=== PATIENT | female | born 1945 | race Caucasian/White ===

== ENCOUNTER → 2021-04-24 | Outpatient (CLI) | payer MEDICARE, OTHER ==
[2021-04-24 16:12] LABS: Appearance,Urine Clear (Clear); Bilirubin,Urine Negative (Negative); Blood,Urine Small (Negative); Color,Urine Light Yellow; Glucose,Urine (UA) Negative (Negative); HCT 36.5 % (34.0-46.0); Hypochromasia Slight; Ketones,Urine Negative (Negative); Leukocyte Esterase,Urine Trace (Negative); MCH 28.3 pg (25.0-35.0); MCHC 32.9 g/dL (31.0-37.0); MCV 86.1 fL (80.0-100.0); Mean Platelet Volume 6.9; Mucus,Urine Rare /hpf; Nitrite,Urine Negative (Negative); PH, Urine 5.5 (5.0-8.0); Platelet Count 391 k/uL (150-450); Protein,Urine Negative (Negative); RBC 4.24 m/uL (3.80-5.40); RBC,Urine 2 /hpf (0-5); RDW 14.6 % (11.5-15.5); Specific Gravity,Urine 1.009 (1.001-1.035); Urobilinogen,Urine <2.0 mg/dL (<2.0); WBC 6.4 k/uL (3.8-10.6); WBC,Urine 1 /hpf (0-5)
[2021-04-24 16:14] LABS: Albumin 3.8 g/dL (3.5-5.0); Calcium 9.8 mg/dL (8.4-10.2); Potassium 3.3 mmol/L (3.5-5.1); Total Bilirubin 0.4 mg/dL (0.2-1.3); Total Protein 7.5 g/dL (6.3-8.2)
[2021-04-24 16:17] LABS: Partial Thromboplastin Time 23.3 sec (22.0-30.0); Prothrombin Time 10.5 sec (9.0-12.0)
== END | disposition home or self-care (01) ==
LOC: LABPAT 15:02
PROVIDERS: ATTEND Orthopaedic Surgery Sports Medicine
DX: Z01.818 Encounter for other preprocedural examination (principal); M17.12 Unilateral primary osteoarthritis, left knee; R94.31 Abnormal electrocardiogram [ECG] [EKG]
CPT/HCPCS: 36415; 80053; 81001; 85027; 85610; 85730; 87070; 93005

== ENCOUNTER 2021-05-04 05:37 | Day surgery (SDC) | payer MEDICARE, OTHER ==
[~2021-05-04 05:37] MED LIST: ACETAMINOPHEN TAB 500 MG TAB PO PRN; GABAPENTIN 300 MG CAP PO PRN; MELOXICAM 7.5 MG TAB PO PRN; ONDANSETRON 4 MG/2 ML VIAL IVP PRN; ROPIVACAINE/EPI/CLONIDINE/KET 50 ML SYRINGE MISCELLANE PRN
[2021-05-04] MEDS ORDERED: ONDANSETRON 4 MG/2 ML VIAL IVP ONE (05:56)
[2021-05-04] MEDS ORDERED: HYDROmorphone 0.5 MG/0.5 ML SYRINGE IVP PRN ×3 (05:56→09:59)
[2021-05-04] MEDS ORDERED: DEXAMETHASONE SOD PHOSPHATE 4 MG/ML 1 ML VIAL IV ONE (05:56)
[2021-05-04] MEDS ORDERED: MIDAZOLAM 2 MG/2 ML VIAL IV PRN (05:56)
[2021-05-04] MEDS: LACTATED RINGERS 1,000 ML IV SCH ×3 (06:28→21:19)
[2021-05-04] MEDS ORDERED: LIDOCAINE 1% (10MG/ML) FOR IV START INTRADERMA ONE (06:28)
[2021-05-04] MEDS ORDERED: ROPIVACAINE 5 MG/ML 30 ML VIAL ONE (07:41)
[2021-05-04] MEDS ORDERED: TRANEXAMIC ACID 1,000 MG/10 ML VIAL ONE (07:41)
[2021-05-04] MEDS ORDERED: SODIUM CHLORIDE 0.9% 100 ML BAG ONE (07:41)
[2021-05-04] MEDS ORDERED: PROPOFOL 10 MG/ML 20 ML VIAL IV ONE (07:41)
[2021-05-04] MEDS ORDERED: fentaNYL (PF) 50 MCG/ML 2 ML AMP ONE (07:41)
[2021-05-04] MEDS ORDERED: TRANEXAMIC ACID 1,000 MG in SODIUM CHLORIDE 0.9% 100 ML IVPB ONE ×4 (07:45)
--- NOTE | 2021-05-04 07:51 | P.ANPRN ---
Procedure Note - Anesthesia - Nerve Block Performed Left Adductor Canal Time Out Performed: Yes (06:36) Date of Procedure: 05/04/21 Procedure Start Time: :36 Procedure Stop Time: 06:48 Location of Patient: PreOp Indication: Acute Post-Operative Pain, Requested by Surgeon (Dr Arriola) Sedation Type: Sedate with meaningful contact maintained Preparation: Sterile Prep, Sterile Dressing Position: Supine Catheter: Indwelling Needle Types: Pajunk Needle Gauge: 21 Ultrasound used to visualize needle placement: Yes Ultrasound used to observe medication spread: Yes Injectate: 0.5% Ropivacaine (see comment for volume) (15cc) Blood Aspirated: No Pain Paresthesia on Injection Noted: No Resistance on Injection: Normal Image Stored and Saved: Yes Events: Uneventful and Well Tolerated
--- NOTE | 2021-05-04 07:53 | P.ANPRN ---
Procedure Note - Anesthesia - Nerve Block Performed Left iPack Time Out Performed: Yes Date of Procedure: 05/04/21 Procedure Start Time: 06:49 Procedure Stop Time: 06:59 Location of Patient: PreOp Indication: Acute Post-Operative Pain, Requested by Surgeon (Dr Arriola) Sedation Type: Sedate with meaningful contact maintained Preparation: Sterile Prep Position: Supine Catheter: None Needle Types: Pajunk Needle Gauge: 21 Ultrasound used to visualize needle placement: Yes Ultrasound used to observe medication spread: Yes Injectate: 0.5% Ropivacaine (see comment for volume) (15cc) Blood Aspirated: No Pain Paresthesia on Injection Noted: No Resistance on Injection: Normal Image Stored and Saved: Yes Events: Uneventful and Well Tolerated
[2021-05-04] MEDS ORDERED: ceFAZolin 3,000 MG in SODIUM CHLORIDE 0.9% IRRIGATIO 3,000 ML IRRIGATION ONE (08:18)
[2021-05-04] MEDS ORDERED: ROPIVACAINE 0.2%-NS ON-Q PUMP 2 MG/ML EACH MISCELLANE ONE (09:42)
[2021-05-04] MEDS ORDERED: ONDANSETRON 4 MG/2 ML VIAL IVP PRN (09:59)
[2021-05-04] MEDS ORDERED: ACETAMINOPHEN TAB 325 MG TAB PO PRN (09:59)
[2021-05-04] MEDS ORDERED: HYDROcodone/APAP 10-325MG 1 EACH TAB PO PRN (09:59)
[2021-05-04] MEDS ORDERED: traMADol 50 MG TAB PO PRN (09:59)
[2021-05-04] MEDS ORDERED: MAGNESIUM HYDROXIDE 2,400 MG/10 ML CUP PO PRN (09:59)
[2021-05-04] MEDS ORDERED: HYDROcodone/APAP 5-325MG 1 EACH TAB PO PRN (09:59)
[2021-05-04] MEDS ORDERED: HYDROmorphone 0.2 MG/1 ML SYRINGE IVP PRN (09:59)
[2021-05-04] MEDS ORDERED: NALOXONE 0.4 MG/ML 1 ML VIAL IV PRN (09:59)
[2021-05-04] MEDS ORDERED: bisacodyL 10 MG SUPP RECTAL PRN (09:59)
[2021-05-04] MEDS ORDERED: NA PHOS,M-B/NA PHOS,DI-BA 133 ML ENEMA RECTAL PRN (09:59)
[2021-05-04] MEDS ORDERED: LACTATED RINGERS 1,000 ML IV ONE (11:03)
--- NOTE | 2021-05-04 11:59 | XR ---
EXAMINATION TYPE: XR knee limited LT DATE OF EXAM: 05/04/2021 COMPARISON: NONE HISTORY: Pain TECHNIQUE: Three views are submitted. FINDINGS: Joint spaces are preserved. Osseous structures are intact. No acute fracture seen. IMPRESSION: 1. No acute fracture or dislocation.
--- NOTE | 2021-05-04 13:05 | OP ---
OPERATIVE REPORT DATE OF PROCEDURE: 05/04/2021. SURGEON: Juan Arriola M.D. LUGGER: Jesus Alberto Vaz PA-C PREOPERATIVE DIAGNOSIS: Left knee osteoarthrosis. POSTOPERATIVE DIAGNOSIS: Left knee osteoarthrosis. OPERATION: Left total knee arthroplasty. ANESTHESIA: Spinal with sedation. ESTIMATED BLOOD LOSS: 100 mL. TOURNIQUET: Tourniquet time was 49 minutes at 250 mmHg. COMPLICATIONS: None apparent. DRAINS: None. DISPOSITION: Post-Anesthesia Care Unit. INDICATIONS: Maricruz is a very pleasant 75-year-old female with longstanding history of left knee pain. History and physical examination are consistent with advanced left knee osteoarthrosis. She has been through significant nonoperative management up to this point. Further treatment options were discussed, and she decided to go forward with left total knee arthroplasty. The risks of the procedure were discussed with her in detail. These risks include but are not limited to risk of infection, nerve damage, bleeding, pain, and a small risk of deep vein thrombosis which could lead to fatal pulmonary embolism. There is also a risk of loosening of the implant which could require revision operation. The patient understands these risks. All of her questions were answered to her satisfaction. Appropriate informed consent was obtained. DESCRIPTION OF PROCEDURE: The patient was identified in the preoperative holding area. Surgical site was marked by both the patient and myself. She was given 2 grams of Ancef IV for prophylactic purposes. She was then transferred to the operative suite. She was placed supine on the operating room table. A spinal anesthetic was then administered and dosed per the anesthesia department without apparent complication. Examination under anesthesia was then performed. The patient was 2-3 degrees shy of full extension. She had 100 degrees of flexion. The medial collateral ligament, lateral ligament, and posterior cruciate ligaments were stable. A tourniquet was then placed high on the left upper thigh, well padded in preparation for surgery. The patient's left lower extremity was then prepped and draped in the usual sterile fashion. Standard surgical pause was undertaken to ensure that we were operating on the correct site and that appropriate preoperative antibiotics had been given. All staff were in agreement and we proceeded. The outlines of the patella were marked with a surgical pen. A planned 12 cm vertical incision centered over the patella was marked with a surgical pen. Leg was then exsanguinated with an Esmarch dressing. The knee was then flexed and the tourniquet was inflated to 250 mmHg. Total tourniquet time for the procedure was 49 minutes. Incision was then made with a 10 blade scalpel. Dissection was carried down sharply to the overlying fascia. Great care was taken to minimize the skin flaps. The knee was then exposed using a standard medial parapatellar approach. A small cuff of quadriceps tendon was then left for suturing. She was in a small amount of valgus preoperatively. A very minimal medial release was then made. This was done just enough to place the retractors on the medial side. The medial meniscus was then excised as well. The lateral meniscus was also released anteriorly. The leg was then externally rotated. The patella was everted. The knee was flexed. The retractors then placed to protect the collateral ligaments. I then proceeded to remove the infrapatellar fat pad. This was excised sharply tangentially with fibers of the patellar tendon. I then proceeded to remove the peripheral osteophytes. This was done with a rongeur. I then proceeded with the distal femoral resection. She did have near-full extension. A planned 9 mm resection was then done. The femoral canal was then entered in the midline of the femur approximately 10 mm anterior to the origin of the posterior cruciate ligament. The seema was then advanced down the center of the femur and placed intramedullary. Based on the preoperative radiographs, the angle between the anatomic and mechanical axis of the femur was approximately 4-5 degrees with a valgus angle. The distal femoral cutting guide was then set at 4 degrees for the left knee. The distal femoral cutting guide was then advanced over the intramedullary seema. This was seated firmly against the femur. I then, as mentioned, planned to take 9 mm off the distal femur. The cutting block was then secured onto the femur with pins. The jig was then removed. The distal cut was made through the slot of the block. The pins were then removed and the distal femoral cutting block was removed. The accuracy of the distal femoral cuts was checked with 2 flat bars. I then proceeded with femoral sizing. The posterior referencing sizing guide was held firmly against the resected distal surface of the femur. The posterior condyles were resting on the posterior plane of the guide. The sizing guide was then placed onto the anterior femur. The size was measured as a size 9. I then assessed for femoral rotation. Plan was for 3 degrees external rotation. Three degrees of external rotation was placed onto the jig. These holes were then marked. I then confirmed the rotation by 3 separate methods. This done using epicondylar axis as well as [place] line and posterior referencing. It was deemed that the external rotation was proper. I then went forward with placing the femoral cutting block. This was placed over the previously placed pin holes. The Gavino wing was then placed onto the anterior slots to ensure that we would not notch the anterior femur with the anterior femoral cut. I then proceeded with the anterior femoral cut. This was flush with the anterior cortex of the femur. The posterior cuts were then made followed by the anterior chamfer cut and then the posterior chamfer cut. The cutting block was then removed. Throughout the resection, the collateral ligaments were protected with retractors. I then placed a trial size 9 femur. It was slightly wide mediolateral, but the narrow fit very nicely and it fit flush with the distal end of the femur. The drill holes were then made. I then proceeded with the tibial cut. I planned for a cruciate-retaining knee. The guide was placed and set for varus, valgus and for slope. The height was set for an approximate 2 mm resection from the medial tibial plateau, which was the lower side. I was happy with the alignment and the amount of resection. The cutting block was then pinned to the proximal tibia. The alignment seema was removed. Proximal tibia was resected with a reciprocating saw. Again this was done with retractors protecting the collateral ligaments as well as the posterior cruciate ligament. I then proceeded to evaluate the flexion and extension gaps. A 10 mm block was then placed. The flexion and extension gaps were equal. I then proceeded with resection of the posterior osteophytes. She had very minimal posterior osteophytes. This was done using a curved osteotome. This resected the posterior osteophytes, and posterior capsule stripping was done off the posterior aspect of the femur. The osteophytes were then removed. I then proceeded with resection of the patella. The thickness of patella was measured using the caliper. The thickness was 22 mm. Thickness of the anticipated patellar dome was taken into account. Resection was then performed and confirmed to be equal in 4 quadrants using a caliper. Approximately 14 mm of bone remained after resection. A 32 x 8.5 mm standard patellar trial was then placed. The holes drilled. The trial was then placed. I then proceeded with sizing the tibial plate. A size E tibial plate fit very nicely. I then placed the trial femur and the tibial tray and the patellar button. A 10 mm trial tibial insert was also placed. The components fit very nicely. She had full extension and flexion. The extension and flexion gaps were equal and stable to both varus and valgus stress. The patella tracked appropriately. The tibial tray rotation was then marked with a Bovie. This was externally rotated properly. I then proceeded with tibial preparation. First we drilled the femoral holes and removed the femoral component. The tibial tray was then set for proper external rotation as well as mediolateral placement onto the tibia. It was then pinned into place. I then proceeded with punching the keel. I then decided to proceed with cementing of all of our components. The knee was thoroughly irrigated with sterile saline solution via pulse lavage. The lateral geniculate artery did was identified and cauterized. All blood was removed from the bone of the tibia, femur and patella with pulse lavage. I then proceeded with cementing. Two packs of antibiotic bone cement were prepared on the back table by the surgical lead. I then proceeded with cementing the tibia first. Cement was impacted into the keel as well as deeply seated into the bone. A second coat of cement was then placed. The tibia was then impacted into place. Excess cement was removed with [place]'s and Joker's. I then proceeded with cementing of the femoral component. The femoral component was also cemented using standard technique. Excess cement was removed. A 10 mm trial insert was then placed into the knee. The knee was brought into full extension with a constant axial load placed until the cement had hardened. The patellar component was then cemented. This was held firmly with a compressive device until the cement had dried. When the cement had dried, the knee was taken out of extension. All excess cement was removed from around the prosthesis. I then trialed the knee with a 10 mm insert. Flexion and extension gaps were appropriate. The knee was stable. It came into full extension. I decided to go forward with a 10 mm medial-congruent, cross-linked, cruciate-retaining tibial insert. Polyethylene was then placed onto the tibial tray and locked into place. The knee was then reduced. The knee was again further irrigated with sterile saline solution with antibiotic added. The tourniquet was then deflated. Total tourniquet time for the procedure was 49 minutes at 250 mmHg. Final components were Ahsan Persona size 9 narrow cruciate-retaining femoral component, a size E tibial tray, a 10 mm medial- congruent, cross-linked, cruciate-retaining polyethylene insert, and a 32 x 8.5 mm patella. I then proceeded with closure. Again the knee was thoroughly irrigated. The quadriceps tendon and medial retinaculum were reapproximated with a #2 Ethibond suture. The extensor mechanism was then closed with a running with a #2 Quill suture. Subcutaneous tissues were closed with 2-0 Vicryl interrupted suture. The skin was closed with a running 3-0 Quill suture. Dermabond was applied to the incision. Sterile compressive dressings were applied. All sponge and needle counts were deemed correct prior to closure. The patient tolerated the procedure without apparent complication. She was transferred to the recovery room in stable condition. MP / KERLINEN: [id number] /
--- NOTE | 2021-05-04 15:39 | P.CONS ---
History of Present Illness - Reason for Consult Consult date: 05/04/21 Medical management Requesting physician: Juan Arriola - Chief Complaint Left knee surgery - History of Present Illness Consultation: This is a pleasant 75-year-old patient who follows with Dr. Bernardo. Chronic stable medical conditions include hypertension, osteoarthritis, rheumatoid arthritis, gout, GERD. Patient has undergone left total knee arthroplasty. Postprocedure the knee area is rather numb. No nausea vomiting. No chest pain. Patient's son is at the bedside. Denies any cardiac history. Sitting up in bed. On a clear liquid diet Review of systems: GEN.: Tired, EYES: None HEENT: None NECK: None RESPIRATORY: None CARDIOVASCULAR: None GASTROINTESTINAL: None GENITOURINARY: None MUSCULOSKELETAL: Joint pains LYMPHATICS: None HEMATOLOGICAL: None PSYCHIATRY: None NEUROLOGICAL: [Does use a cane Past medical history to include: Hypertension, osteoarthritis, rheumatoid arthritis, gout, Social history: Does not smoke or drink alcohol. Lives alone. . Family history: Reviewed, noncontributory to presentation Physical examination: VITAL SIGNS: 97.4, 81, 17, 1 37 x 82, 93% on room air GENERAL: 21.8 BMI, sitting up in bed, awake, operable. EYES: Pupils equal. Conjunctiva normal. HEENT: External appearance of nose and ears normal, oral cavity grossly normal. NECK: JVD not raised; masses not palpable. HEART: First and second heart sounds are normal; no edema. LUNGS: Respiratory rate normal; clear to auscultation. ABDOMEN: Soft, nontender, liver spleen not palpable, no masses palpable. PSYCH: Alert and oriented x3; mood and affect normal. POST skeletal: Dressing over the left knee. Evidence of OA NEUROLOGICAL: Cranial nerves grossly intact; no facial asymmetry, power and sensation grossly intact. LYMPHATICS: No lymph nodes palpable in the axilla and neck INVESTIGATIONS, reviewed in the clinical context: Potassium 3.5 Coronavirus [PCF]: Not detected Labs from 04/24/2021 White count 6.4 hemoglobin 12 platelets 391 potassium 3.5 creatinine 0.75 Assessment and plan: -Left total knee arthroplasty Aspirin 81 mg twice a day for DVT prophylaxis per Dr. Arriola, IV Ancef for infection prophylaxis. [place] for pain control -Primary osteoarthritis of multiple joints bilateral Pain medications as needed -Essential hypertension Toprol-XL 25 mg daily, Vasotec 5/12.5 one tablet daily -Vitamin B-12 deficiency Vitamin B12 thousand micrograms daily -GERD Pepcid 20 mg twice a day Care was discussed with the patient. Home medications resumed. Questions answered. Patient to follow-up with her PCP upon discharge Thank you Dr. 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, left carotid endarterectomy Past Anesthesia/Blood Transfusion Reactions: No Reported Reaction Past Psychological History: No Psychological Hx Reported Smoking Status: Never smoker Past Alcohol Use History: None Reported Past Drug Use History: None Reported - Past Family History Sister(s) Family Medical History: Cancer Son(s) Family Medical History: Deep Vein Thrombosis (DVT) Father Family Medical History: Unable to Obtain Medications and Allergies Home Medications Medication Instructions Recorded Confirmed Type Acetaminophen [Tylenol Arthritis] 650 mg PO BID 04/26/21 05/04/21 History Aspirin [Adult Low Dose Aspirin EC] 81 mg PO DAILY 04/26/21 05/04/21 History Cyanocobalamin (Vitamin B-12) 1,000 mcg PO QAM 04/26/21 05/04/21 History [Vitamin B-12] Enalapril/Hydrochlorothiazide 1 tab PO DAILY 04/26/21 05/04/21 History [Vaseretic 5-12.5 mg] Famotidine [Pepcid] 20 mg PO BID 04/26/21 05/04/21 History Ferrous Sulfate [Iron] 325 mg PO QAM 04/26/21 05/04/21 History Metoprolol Succinate [Toprol XL] 25 mg PO DAILY 04/26/21 05/04/21 History Mv-Min/Folic/Vit K/Lut/Awqa891 1 each PO DAILY 04/26/21 05/04/21 History [Alive Women's 50 Plus Tablet] Potassium Chloride [Klor-Con 20] 20 meq PO DAILY 04/26/21 05/04/21 History Ubidecarenone [Co Q-10] 100 mg PO QAM 04/26/21 05/04/21 History Cephalexin [Keflex] 500 mg PO Q6HR 1 Days #28 cap 05/04/21 Rx Allergies Allergy/AdvReac Type Severity Reaction Status Date / Time morphine AdvReac Nausea & Verified 05/04/21 07:06 Vomiting Physical Exam Vitals: Vital Signs Temp Pulse Resp BP Pulse Ox 05/04/21 10:55 70 16 139/71 98 05/04/21 10:40 68 16 141/72 97 05/04/21 10:25 62 16 139/70 95 05/04/21 10:10 58 L 16 118/57 96 05/04/21 09:55 58 L 16 122/59 96 05/04/21 09:40 97 F L 60 16 115/67 98 05/04/21 06:04 98.0 F 66 16 151/75 100 Intake and Output 05/03/21 05/04/21 05/04/21 22:59 06:59 14:59 Intake Total 400 651 Output Total 100 Balance 400 551 Intake: IV 400 651 Output: Estimated Blood Loss 100 Other: Weight 63 kg 63 kg Results CBC & Chem 7: 05/04/21 06:26
[2021-05-04] MEDS ORDERED: SENNOSIDES-DOCUSATE SODIUM 1 EACH TAB PO SCH (21:00)
[2021-05-04] MEDS: ASPIRIN 81 MG PO SCH (21:16)
[2021-05-04] MEDS: FAMOTIDINE 20 MG TAB PO SCH (21:16)
[2021-05-05] MEDS: LACTATED RINGERS 1,000 ML IV SCH ×2 (05:59→07:49)
[2021-05-05 07:29] VITALS: BP 132/67; PULSE 77; RESP 18; TEMP 98.5
[2021-05-05] MEDS: FAMOTIDINE 20 MG TAB PO SCH (07:52)
[2021-05-05] MEDS: ASPIRIN 81 MG PO SCH (07:52)
[2021-05-05] MEDS ORDERED: CYANOCOBALAMIN 500 MCG TAB PO SCH (09:00)
[2021-05-05] MEDS ORDERED: METOPROLOL SUCCINATE (ER) 25 MG TAB.ER.24H PO SCH (09:00)
[2021-05-05] MEDS ORDERED: POTASSIUM CHLORIDE ER 20 MEQ TAB.ER PO SCH (09:00)
[2021-05-05 09:09] LABS: Basophils # (A) 0.03 X 10*3/uL (0.00-0.10); Basophils % (A) 0.5 %; Eosinophils # (A) 0.03 X 10*3/uL (0.04-0.35); Eosinophils % (A) 0.5 %; HCT 29.1 % (37.2-46.3); HGB 9.2 g/dL (12.0-15.0); Lymphocytes % (A) 41.1 %; MCH 27.1 pg (27.0-32.0); MCHC 31.6 g/dL (32.0-37.0); MCV 85.6 fL (80.0-97.0); Mean Platelet Volume 10.2 fL (9.5-12.2); Monocytes # (A) 0.62 X 10*3/uL (0.20-1.00); Monocytes % (A) 11.1 %; Neutrophils # (A) 2.59 X 10*3/uL (1.80-7.70); Neutrophils % (A) 46.4 %; Platelet Count 252 X 10*3/uL (140-440); RDW 13.9 % (11.5-14.5); WBC 5.59 X 10*3/uL (4.50-10.00)
[2021-05-05 11:56] VITALS: BMI 21.7
[2021-05-05] MEDS ORDERED: MULTIVITAMINS, THERA 1 EACH TAB PO SCH (12:00)
--- NOTE | 2021-05-05 12:56 | P.PN ---
Progress Note - Text 05/05/21 649 75-year-old female status post total knee replacement by Dr. Arriola. Patient has an On-Q pump for postop pain control with the solution running at 8 mL an hour with a VAS of 1 pain predominantly located posteriorly. Dressing looks clean dry and intact
--- NOTE | 2021-05-05 15:25 | P.PN ---
Progress Note - Text Progress Note Date: 05/05/21 - Chief Complaint Left knee surgery Consultation: This is a pleasant 75-year-old patient who follows with Dr. Bernardo. Chronic stable medical conditions include hypertension, osteoarthritis, rheumatoid arthritis, gout, GERD. Patient has undergone left total knee arthroplasty. Postprocedure the knee area is rather numb. No nausea vomiting. No chest pain. Patient's son is at the bedside. Denies any cardiac history. Sitting up in bed. On a clear liquid diet May 05: Patient had some nausea earlier today. Better. Did eat some. Did work with therapy. No chest pain or shortness of breath. Patient to hold off Vasotec to systolic blood pressure above 140 at home. Check blood pressure daily. Follow-up with PCP. Review of systems: Was done for constitutional, cardiovascular, GI, pulmonary. relevant finding as above Current medications reviewed in electronic records Past medical history to include: Hypertension, osteoarthritis, rheumatoid arthritis, gout, Social history: Does not smoke or drink alcohol. Lives alone. . Family history: Reviewed, noncontributory to presentation Physical examination: VITAL SIGNS: 98.5, 77, 18, 132/67, 96% room air GENERAL: He planning in bed,, awake, comfortable EYES: Pupils equal. Conjunctiva normal. NECK: JVD not raised; masses not palpable. HEART: First and second heart sounds are normal; no edema. LUNGS: Respiratory rate normal; clear to auscultation. ABDOMEN: Soft, nontender, liver spleen not palpable, no masses palpable. PSYCH: Alert and oriented x3; mood and affect normal. POST skeletal: Dressing over the left knee. Evidence of OA INVESTIGATIONS, reviewed in the clinical context: May 05: WBC 5.5 hemoglobin 9.2 platelets 252 Potassium 3.5 Coronavirus [PCF]: Not detected Labs from 04/24/2021 White count 6.4 hemoglobin 12 platelets 391 potassium 3.5 creatinine 0.75 Assessment and plan: -Left total knee arthroplasty Aspirin 81 mg twice a day for DVT prophylaxis per Dr. Arriola, IV Ancef for infection prophylaxis. [place] for pain control -Primary osteoarthritis of multiple joints bilateral Pain medications as needed -Essential hypertension Toprol-XL 25 mg daily, Vasotec 5/12.5 one tablet daily -Vitamin B-12 deficiency Vitamin B12 thousand micrograms daily -GERD Pepcid 20 mg twice a day -Acute postprocedure blood loss anemia, expected from surgery Iron supplement Hold Vasotec until systolic blood pressure above 140. Blood pressure check daily. Iron supplement. Other medications to continue. Follow-up with PCP Thank you Dr. Arriola
--- NOTE | 2021-05-05 22:02 | P.DS ---
Providers Expected date of discharge: 05/05/21 Attending physician: Juan Arriola Consults: 05/04/21 09:59 Consult Physician Routine Consulting Provider: Prashanth Allen Consult Reason/Comments: post op medical management Do you want consulting provider notified?: Yes Primary care physician: Rob Bacon - Discharge Diagnosis(es) (1) Status post total left knee replacement Patient was admitted to the OR on 05/04/21 to undergo a left total knee arthroplasty. She had failed conservative measures as an outpatient and desired to proceed with elective surgery after given informed consent. She underwent the above procedure which she tolerated well without complication. Postoperative hospital course has remained without complication. On day of discharge she is afebrile, vital signs stable, labs within acceptable ranges, tolerating by mouth meds and diet, voiding without difficulty, positive flatus, denies abdominal pain or calf pain, pain is controlled on oral pain medication and has no new complaints. Wound is benign, neurovascular status is intact, calf is soft and nontender, abdomen soft and nontender. Review of systems is negative for numbness, tingling, fever, chills, chest pain, shortness of breath, nausea, vomiting, dizziness, headaches, slurred speech or other. Status: Acute Priority: Medium Procedures: Left TKA Patient Condition at Discharge: Good Plan - Discharge Summary Discharge Rx Participant: Yes New Discharge Prescriptions: New Cephalexin [Keflex] 500 mg PO Q6HR 1 Days #28 cap Aspirin [Adult Low Dose Aspirin EC] 81 mg PO BID #60 tab Docusate [Colace] 100 mg PO BID #60 cap HYDROcodone/APAP 7.5-325MG [[place] 7.5-325] 1 - 2 each PO Q6HR PRN #42 tab PRN Reason: Pain Continue Potassium Chloride [Klor-Con 20] 20 meq PO DAILY Mv-Min/Folic/Vit K/Lut/Nhis648 [Alive Women's 50 Plus Tablet] 1 each PO DAILY Ubidecarenone [Co Q-10] 100 mg PO QAM Metoprolol Succinate [Toprol XL] 25 mg PO DAILY Acetaminophen [Tylenol Arthritis] 650 mg PO BID Aspirin [Adult Low Dose Aspirin EC] 81 mg PO DAILY Famotidine [Pepcid] 20 mg PO BID Ferrous Sulfate [Iron] 325 mg PO QAM Cyanocobalamin (Vitamin B-12) [Vitamin B-12] 1,000 mcg PO QAM Enalapril/Hydrochlorothiazide [Vaseretic 5-12.5 mg] 1 tab PO DAILY Discharge Medication List Acetaminophen [Tylenol Arthritis] 650 mg PO BID 04/26/21 [History] Aspirin [Adult Low Dose Aspirin EC] 81 mg PO DAILY 04/26/21 [History] Cyanocobalamin (Vitamin B-12) [Vitamin B-12] 1,000 mcg PO QAM 04/26/21 [History] Enalapril/Hydrochlorothiazide [Vaseretic 5-12.5 mg] 1 tab PO DAILY 04/26/21 [History] Famotidine [Pepcid] 20 mg PO BID 04/26/21 [History] Ferrous Sulfate [Iron] 325 mg PO QAM 04/26/21 [History] Metoprolol Succinate [Toprol XL] 25 mg PO DAILY 04/26/21 [History] Mv-Min/Folic/Vit K/Lut/Gumz616 [Alive Women's 50 Plus Tablet] 1 each PO DAILY 04/26/21 [History] Potassium Chloride [Klor-Con 20] 20 meq PO DAILY 04/26/21 [History] Ubidecarenone [Co Q-10] 100 mg PO QAM 04/26/21 [History] Cephalexin [Keflex] 500 mg PO Q6HR 1 Days #28 cap 05/04/21 [Rx] Aspirin [Adult Low Dose Aspirin EC] 81 mg PO BID #60 tab 05/05/21 [Rx] Docusate [Colace] 100 mg PO BID #60 cap 05/05/21 [Rx] HYDROcodone/APAP 7.5-325MG [[place] 7.5-325] 1 - 2 each PO Q6HR PRN #42 tab 05/05/21 [Rx] Follow up Appointment(s)/Referral(s): Rob Bacon DO [Primary Care Provider] - 05/09/21 12:00 pm [facility], [NON-STAFF] - ([facility] will call you to set up the time for your first home physical therapy visit. Please contact them if you have questions regarding home care. ) Juan Arriola MD [STAFF PHYSICIAN] - 10 Days (Office closed due to a power outage. Please call office saturday to make your appointment. Thank you) Patient Instructions/Handouts: Joint Replacement Surgery (DC) Activity/Diet/Wound Care/Special Instructions: Take meds as directed weightbear as tolerated Keep wound clean and dry F/U in office May shower in 3 days if no bleeding or drainage daily BP check resume vasoretic when systolic BP above 140 Discharge Disposition: HOME WITH HOME HEALTH SERVICES
== END 2021-05-05 16:11 | disposition home health service (06) ==
LOC: OR 05:37 → 4SSUR 09:40 → OR 05-05 16:11
PROVIDERS: ATTEND Orthopaedic Surgery Sports Medicine
DX: M17.12 Unilateral primary osteoarthritis, left knee (principal); D50.0 Iron deficiency anemia secondary to blood loss (chronic); E53.8 Deficiency of other specified B group vitamins; I10 Essential (primary) hypertension; K21.9 Gastro-esophageal reflux disease without esophagitis; M06.9 Rheumatoid arthritis, unspecified; M10.9 Gout, unspecified; Z79.82 Long term (current) use of aspirin; Z79.899 Other long term (current) drug therapy; Z88.5 Allergy status to narcotic agent; Z90.49 Acquired absence of other specified parts of digestive tract; Z96.652 Presence of left artificial knee joint
CPT/HCPCS: 27447; 97161; 64999; 64448; 76942; 84132; 85025; 88300; 87635; 73560; C1776; C1713; J2250; J1100; J0690 ×3; J2405; J3010; J2795 ×2; J2704; J1170

== ENCOUNTER → 2022-10-26 | Outpatient (CLI) | payer MEDICARE, OTHER ==
[2022-10-26 14:19] LABS: INR 0.9 (<1.2); Partial Thromboplastin Time 23.1 sec (22.0-30.0); Prothrombin Time 9.9 sec (9.0-12.0)
[2022-10-26 18:39] LABS: HCT 45.3 % (37.2-46.3); HGB 14.3 g/dL (12.0-15.0); MCH 27.7 pg (27.0-32.0); MCHC 31.6 g/dL (32.0-37.0); MCV 87.8 fL (80.0-97.0); Mean Platelet Volume 10.8 fL (9.5-12.2); NRBC Per 100 WBC 0 /100 WBCS (0.0-0.0); Platelet Count 233 X 10*3/uL (140-440); RBC 5.16 X 10*6/uL (4.10-5.20); RDW 13.5 % (11.5-14.5); WBC 8.61 X 10*3/uL (4.50-10.00)
[2022-10-26 22:54] LABS: African American GFR (CKD) 72.2 (60.0-200.0); Albumin/Globulin Ratio 1.47 (1.60-3.17); Anion Gap 9.7 mmol/L (10.00-18.00); BUN/Creat Ratio 17.91 Ratio (12.00-20.00); Blood Urea Nitrogen 15.8 mg/dL (9.0-27.0); Calcium 9.4 mg/dL (8.7-10.3); Carbon Dioxide 27.3 mmol/L (20.0-27.5); Globulin 2.7 g/dL (1.6-3.3); Non-African American GFR(CKD) 62.3 (60.0-200.0); Total Bilirubin 0.3 mg/dL (0.30-1.20); Total Protein 6.7 g/dL (6.2-8.2)
[2022-10-26 23:55] LABS: Appearance,Urine Clear (Clear); Bilirubin,Urine Negative (Negative); Blood,Urine Trace (Negative); Color,Urine Yellow (Yellow); Ketones,Urine Negative (Negative); Nitrite,Urine Negative (Negative); Specific Gravity,Urine 1.011 (1.001-1.030); Urobilinogen,Urine 0.2 (0.2,1.0)
[2022-10-27 00:03] LABS: Bacteria,Urine None Seen /HPF (None Seen)
== END | disposition home or self-care (01) ==
LOC: LABPAT 10-23 14:41
PROVIDERS: ATTEND Orthopaedic Surgery
DX: Z01.818 Encounter for other preprocedural examination (principal); I10 Essential (primary) hypertension; I77.9 Disorder of arteries and arterioles, unspecified; R94.31 Abnormal electrocardiogram [ECG] [EKG]
CPT/HCPCS: 36415; 80053; 81001; 85027; 85610; 85730; 87070; 93005

== ENCOUNTER 2022-11-06 05:32 | Day surgery (SDC) | payer MEDICARE, OTHER ==
[~2022-11-06 05:32] MED LIST changes: -ONDANSETRON 4 MG/2 ML VIAL IVP PRN; -ROPIVACAINE/EPI/CLONIDINE/KET 50 ML SYRINGE MISCELLANE PRN; +TRANEXAMIC ACID IN NACL,ISO-OS 1,000 MG in SALINE 1 100ML.BAG IVPB PRN
[2022-11-06] MEDS ORDERED: DEXAMETHASONE SOD PHOSPHATE 4 MG/ML 1 ML VIAL IV ONE (05:42)
[2022-11-06] MEDS ORDERED: ONDANSETRON 4 MG/2 ML VIAL IVP ONE (05:42)
[2022-11-06] MEDS: LACTATED RINGERS 1,000 ML IV SCH (06:00)
[2022-11-06] MEDS ORDERED: MIDAZOLAM 2 MG/2 ML VIAL IVP ONE (06:39)
[2022-11-06] MEDS ORDERED: ePHEDrine 50 MG/ML 1 ML VIAL ONE (06:54)
[2022-11-06] MEDS ORDERED: fentaNYL (PF) 50 MCG/ML 2 ML AMP ONE (06:54)
[2022-11-06] MEDS ORDERED: TRANEXAMIC ACID IN NACL,ISO-OS 1,000 MG/100 ML BAG ONE (06:54)
[2022-11-06] MEDS ORDERED: KETAMINE 10 MG/ML 20 ML VIAL ONE (06:54)
[2022-11-06] MEDS ORDERED: DEXAMETHASONE SOD PHOSPHATE 4 MG/ML 1 ML VIAL ONE (06:54)
[2022-11-06] MEDS ORDERED: PROPOFOL 10 MG/ML 20 ML VIAL IV ONE (06:54)
[2022-11-06] MEDS ORDERED: ROPIVACAINE 5 MG/ML 30 ML VIAL ONE (06:54)
[2022-11-06] MEDS ORDERED: HYDROmorphone 0.5 MG/0.5 ML SYRINGE IVP PRN ×4 (07:00→09:01)
[2022-11-06] MEDS ORDERED: ROPIVACAINE 5 MG/ML 30 ML VIAL MISCELLANE ONE (07:29)
--- NOTE | 2022-11-06 08:58 | FL ---
EXAMINATION TYPE: FL guidance operating room, XR Hip Limited RT DATE OF EXAM: 11/06/2022 CLINICAL HISTORY: Right hip pain. History of prosthesis. TECHNIQUE: Fluoroscopy. Limited intraoperative views right hip. COMPARISON: Right hip x-ray June 07, 2015. FINDINGS: Fluoroscopic guidance was provided during hip replacement procedure performed by Dr. Chao villela. A total of 13.2 seconds of fluoroscopic time was utilized during the procedure and 3 spot image s was acquired. Images acquired show metallic hip replacement in satisfactory position on intraoperative images obtai ema. Total DAP 0.6220 Gy x cm2. IMPRESSION: As Above.
[2022-11-06] MEDS ORDERED: ONDANSETRON 4 MG/2 ML VIAL IVP PRN (09:01)
[2022-11-06] MEDS ORDERED: NALOXONE 0.4 MG/ML 1 ML VIAL IV PRN (09:01)
[2022-11-06] MEDS ORDERED: MAGNESIUM HYDROXIDE 2,400 MG/10 ML CUP PO PRN (09:01)
[2022-11-06] MEDS ORDERED: HYDROcodone/APAP 7.5-325MG 1 EACH TAB PO PRN ×2 (09:03)
--- NOTE | 2022-11-06 09:06 | P.OP ---
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 She has developed pain in her groin secondary to acetabular arthrosis. After discussing the surgical and nonsurgical treatment options with her at length, I recommended a revision of a right hip hemiarthroplasty to a total hip arthroplasty. Informed consent was obtained. Operative Findings: The operative findings are consistent with acetabular arthrosis of the right hip. Also during surgery, the trunnion was cold welded into the neck adapter and was unable to be removed. The surgery was aborted secondary to this inability to remove the neck adapter from the trunnion of the stem. Description of Procedure: The patient was seen and evaluated in the preoperative area and the consent was reviewed. The operative site was marked with a skin marker. The patient verified the procedure and operative site. A GRUPO block was placed by anesthesia in the preoperative area. The patient was then brought to the operating room and given preoperative antibiotics intravenously. 1 g of Tranexamic acid was also given intravenously. A spinal anesthetic was administered by the anesthesia department. The patient was then placed on the [place] table with the bony prominences well-padded. The hip area was then prepped with a ChloraPrep solution and draped in the usual sterile fashion. A universal timeout was then performed, which confirmed the patient's name, surgical site, ALLERGIES, and procedure being performed on the consent. Next the incision site was located at 1 cm distal and 4 cm lateral to the anterior superior iliac spine. The skin and subcutaneous tissues were sharply incised. Incision was carefully dissected down to the fascia overlying the tensor fascia maddie muscle. This fascia was then incised in line with the muscle fibers. Care was taken to stay laterally in order to avoid injuring the lateral femoral cutaneous nerve. Next, using blunt finger dissection, the tensor fascia maddie muscle was dissected off its investing fascia. The muscle was then carefully retracted laterally with a cobra retractor over the lateral neck of the femur. Next, the circumflex vessels were identified and cauterized using the Aquamantis device. The anterior hip capsule was then exposed. The capsule was then opened and an inverted T fashion. The retractors were then placed intracapsularly. The retractors were maintained intracapsular throughout the procedure. The proximal femur was then visualized. Fluoroscopic x-rays were then taken in order to evaluate the preoperative leg lengths. A small amount of traction was placed on the leg. The hip was then dislocated and the proximal femur was exposed. Using an extraction device, the hemiarthroplasty and a Polar head was removed. Next, multiple attempts were then done to remove the neck adapter from the trunnion. The femoral stem was well fixed. After multiple attempts with multiple devices in order to remove the neck adapter, the surgery was aborted because there was a risk of causing further damage all trying to remove the neck adapter. Options at this time were aborting the procedure, removing the femoral stem which would require an extensive extended trochanteric osteotomy with a revision stem. Also using a high-speed bur to remove the trunnion was not, but it was felt the neck adapter may still be cold welded and then there will be multiple that'll shavings within the wound which could cause further damage. The endo-head was then impacted onto the neck adapter and the hip was then reduced. Fluoroscopic x-rays confirmed reduction of the hip. The hip was then copiously irrigated with antibiotic solution with pulsatile lavage. The hip was then irrigated with Irrisept solution. The soft tissues were then injected with a ropivacaine solution. A second dose of 1 g of Tranexamic acid was also given intravenously. The fascia was then closed with 2-0 strata fix suture. The subcutaneous tissue was closed with 3-0 Vicryl. The subcuticular tissue was closed with 3-0 strata fix suture. The skin was then closed with Exofin skin glue. After the glue and dried, and Optifoam silver impregnated dressing was applied. The patient was then transferred to the recovery room in stable condition. The promotional advertising assistant AALIYAH Verdugo was required due to the complexity of surgery, and the need for skilled surgical services coordinator for positioning, draping, exposure, retraction, and closure of the wound. After surgery I discussed at length with the patient's son about the decision to abort the surgery. I will discuss with the patient when she awakens from anesthesia and give her her options going forward in the future.
--- NOTE | 2022-11-06 09:35 | XR ---
EXAMINATION TYPE: XR Hip Limited RT DATE OF EXAM: 11/06/2022 CLINICAL HISTORY: Postoperative evaluation TECHNIQUE: Single portable view of the right hip was submitted. FINDINGS: Noted are changes of total hip arthroplasty with femoral and acetabular components appearin g well seated. Alignment is anatomic. Postsurgical soft tissue changes are evident. IMPRESSION: Satisfactory postoperative alignment
[2022-11-06] MEDS: SODIUM CHLORIDE 0.9% 1,000 ML IV SCH (10:45)
[2022-11-06] MEDS ORDERED: ACETAMINOPHEN TAB 325 MG TAB PO PRN (10:58)
--- NOTE | 2022-11-06 11:49 | P.CONS ---
History of Present Illness - Reason for Consult Preoperative consultation management - History of Present Illness Patient is a pleasant 77-year-old female came in for is a tablet arthrosis, revision of him arthroplasty was attempted and was unsuccessful as they were unable to remove the previous hardware. Patient denied any fever chills nausea vomiting abdominal pain dysuria. Patient does have history of hypertension and rheumatoid arthritis. REVIEW OF SYSTEMS: CONSTITUTIONAL: No fever, no malaise, no fatigue. HEENT: No recent visual problems or hearing problems. Denied any sore throat. CARDIOVASCULAR: No chest pain, orthopnea, PND, no palpitations, no syncope. PULMONARY: No shortness of breath, no cough, no hemoptysis. GASTROINTESTINAL: No diarrhea, no nausea, no vomiting, no abdominal pain. NEUROLOGICAL: No headaches, no weakness, no numbness. HEMATOLOGICAL: Denies any bleeding or petechiae. GENITOURINARY: Denies any burning micturition, frequency, or urgency. MUSCULOSKELETAL/RHEUMATOLOGICAL: Denies any joint pain, swelling, or any muscle pain. ENDOCRINE: Denies any polyuria or polydipsia. The rest of the 14-point review of systems is negative. PHYSICAL EXAMINATION: GENERAL: The patient is alert and oriented x3, not in any acute distress. Well developed, well nourished. HEENT: Pupils are round and equally reacting to light. EOMI. No scleral icterus. No conjunctival pallor. Normocephalic, atraumatic. No pharyngeal erythema. No thyromegaly. CARDIOVASCULAR: S1 and S2 present. No murmurs, rubs, or gallops. PULMONARY: Chest is clear to auscultation, no wheezing or crackles. ABDOMEN: Soft, nontender, nondistended, normoactive bowel sounds. No palpable organomegaly. MUSCULOSKELETAL: Deferred to orthopedic surgery EXTREMITIES: No cyanosis, clubbing, or pedal edema. NEUROLOGICAL: Gross neurological examination did not reveal any focal deficits. SKIN: No rashes. Assessment and plan -Hypertension: Patient just got the surgery done because of which I'll hold the diuretic but elevation will be resumed on beta marilyn. If her blood pressure continues to stay high patient will be resumed on the diuretic as well. -Right hip failed revision arthroplasty further management as per primary service try and avoid opiates considering his age -History of from gout arthritis DVT prophylaxis: As per primary service Past Medical History Past Medical History: Hypertension, Rheumatoid Arthritis (RA) Additional Past Medical History / Comment(s): gout, port right chest History of Any Multi-Drug Resistant Organisms: None Reported Past Surgical History: Appendectomy, Cholecystectomy, Hysterectomy, Joint Replacement Additional Past Surgical History / Comment(s): Left thyroidectomy, right hip replaced 2014, cataracts removed, left knee replaced, Left ankle benign tumor removal. Past Anesthesia/Blood Transfusion Reactions: No Reported Reaction Past Psychological History: No Psychological Hx Reported Smoking Status: Never smoker Past Alcohol Use History: None Reported Past Drug Use History: None Reported - Past Family History Sister(s) Family Medical History: Cancer Son(s) Family Medical History: Deep Vein Thrombosis (DVT) Father Family Medical History: Unable to Obtain Medications and Allergies Home Medications Medication Instructions Recorded Confirmed Type Aspirin [Adult Low Dose Aspirin EC] 81 mg PO DAILY 04/26/21 11/06/22 History Cyanocobalamin (Vitamin B-12) 1,000 mcg PO QAM 04/26/21 11/06/22 History [Vitamin B-12] Enalapril/Hydrochlorothiazide 1 tab PO DAILY 04/26/21 11/06/22 History [Vaseretic 5-12.5 mg] Ferrous Sulfate [Iron] 325 mg PO QAM 04/26/21 11/06/22 History Metoprolol Succinate [Toprol XL] 25 mg PO DAILY 04/26/21 11/06/22 History Mv-Min/Folic/Vit K/Lut/Dnwh033 1 each PO DAILY 04/26/21 11/06/22 History [Alive Women's 50 Plus Tablet] Potassium Chloride [Klor-Con 20] 20 meq PO DAILY 04/26/21 11/06/22 History Ubidecarenone [Co Q-10] 100 mg PO QAM 04/26/21 11/06/22 History Turmeric Root Extract [Turmeric] 500 mg PO DAILY 11/05/22 11/06/22 History Aspirin 325 mg PO BID #60 tab 11/06/22 Rx HYDROcodone/APAP 7.5-325MG [[place] 1 - 2 tab PO Q6H PRN #32 tab 11/06/22 Rx 7.5-325] Sennosides [Senokot] 2 tab PO DAILY PRN #60 tablet 11/06/22 Rx Allergies Allergy/AdvReac Type Severity Reaction Status Date / Time morphine AdvReac Nausea & Verified 11/06/22 05:49 Vomiting Physical Exam Vitals: Vital Signs Temp Pulse Resp BP Pulse Ox 11/06/22 11:20 72 149/79 91 L 11/06/22 11:05 75 161/82 93 L 11/06/22 10:50 77 142/75 94 L 11/06/22 10:35 69 162/79 98 11/06/22 10:20 97.3 F L 68 16 154/78 98 11/06/22 09:49 63 16 141/68 98 11/06/22 09:37 62 16 126/62 98 11/06/22 09:25 64 16 124/60 95 11/06/22 09:10 64 16 119/58 95 11/06/22 08:56 97.5 F L 67 14 118/58 99 11/06/22 06:51 63 18 136/58 98 11/06/22 06:16 98.7 F 53 L 18 172/75 98 Intake and Output 11/05/22 11/06/22 11/06/22 22:59 06:59 14:59 Intake Total 200 850 Output Total 100 Balance 200 750 Intake: IV 200 850 Output: Estimated Blood Loss 100 Other: Weight 76.3 kg 76.3 kg
[2022-11-06] MEDS: METOPROLOL SUCCINATE (ER) 25 MG TAB.ER.24H PO SCH (12:56)
[2022-11-06] MEDS ORDERED: SENNOSIDES-DOCUSATE SODIUM 1 EACH TAB PO SCH (21:00)
[2022-11-06] MEDS: ASPIRIN 325 MG TAB PO SCH (21:02)
[2022-11-07] MEDS: SODIUM CHLORIDE 0.9% 1,000 ML IV SCH ×2 (00:26→12:12)
[2022-11-07 02:51] VITALS: RESP 16
[2022-11-07] MEDS: LACTATED RINGERS 1,000 ML IV SCH (06:09)
--- NOTE | 2022-11-07 06:15 | P.ANPRN ---
Procedure Note - Anesthesia - Nerve Block Performed Right Russ Single Time Out Performed: Yes Date of Procedure: 10/09/22 Procedure Start Time: 06:38 Procedure Stop Time: 06:46 Location of Patient: PreOp Indication: Acute Post-Operative Pain, Requested by Surgeon Sedation Type: Sedate with meaningful contact maintained Preparation: Sterile Prep Position: Supine Needle Types: [place] Needle Gauge: 21 Ultrasound used to visualize needle placement: Yes Ultrasound used to observe medication spread: Yes Blood Aspirated: No Pain Paresthesia on Injection Noted: No Resistance on Injection: Normal Image Stored and Saved: Yes Events: Uneventful and Well Tolerated (Ropivacaine 0.5% 20 mL plus dexamethasone 4 mg)
[2022-11-07 07:33] VITALS: BP 116/62; PULSE 64; TEMP 98.8
[2022-11-07 08:58] LABS: Basophils # (A) 0.02 X 10*3/uL (0.00-0.10); Basophils % (A) 0.4 %; Eosinophils # (A) 0.03 X 10*3/uL (0.04-0.35); Eosinophils % (A) 0.6 %; HCT 33.1 % (37.2-46.3); HGB 10.7 g/dL (12.0-15.0); Immature Grans, Automated 0.2 %; Lymphocytes # (A) 1.01 X 10*3/uL (0.90-5.00); Lymphocytes % (A) 18.6 %; MCH 27.8 pg (27.0-32.0); MCHC 32.3 g/dL (32.0-37.0); Mean Platelet Volume 10.3 fL (9.5-12.2); Monocytes # (A) 0.29 X 10*3/uL (0.20-1.00); Monocytes % (A) 5.4 %; NRBC Per 100 WBC 0 /100 WBCS (0.0-0.0); Neutrophils # (A) 4.06 X 10*3/uL (1.80-7.70); Neutrophils % (A) 74.8 %; Platelet Count 114 X 10*3/uL (140-440); RBC 3.85 X 10*6/uL (4.10-5.20); RDW 13.4 % (11.5-14.5); WBC 5.42 X 10*3/uL (4.50-10.00)
[2022-11-07] MEDS ORDERED: ASPIRIN 81 MG PO SCH (09:00)
[2022-11-07] MEDS: ASPIRIN 325 MG TAB PO SCH (09:12)
[2022-11-07] MEDS: METOPROLOL SUCCINATE (ER) 25 MG TAB.ER.24H PO SCH (09:12)
--- NOTE | 2022-11-07 11:18 | P.DS ---
Providers Date of admission: 11/06/2022 Expected date of discharge: 11/07/22 Attending physician: Arjun Horn Consults: 11/06/22 09:01 Consult Physician Routine Consulting Provider: Kareem Clark Consult Reason/Comments: medical management Do you want consulting provider notified?: Yes Primary care physician: Rob Bacon - Discharge Diagnosis(es) (1) Status post hip hemiarthroplasty Current Visit: No Status: Acute Hospital Course: This is a 77-year-old female who presents to the office with complaint of right hip pain. She has history of hemiarthroplasty of the right hip and has been having some groin pain. On x-ray she was noted to have some wear to the acetabulum. She was scheduled for revision hemiarthroplasty to total right hip arthroplasty with direct anterior approach. The prosthetic head was cold welded to the trunnion of the femoral stem. The prosthesis was unable to be removed. The surgical procedure was then aborted. The patient is doing well postoperative day #1. She will be discharged to home today. Please see [facility] rec for accurate list of home medications. Patient Condition at Discharge: Stable Plan - Discharge Summary Discharge Rx Participant: No New Discharge Prescriptions: New Aspirin 325 mg PO BID #60 tab HYDROcodone/APAP 7.5-325MG [[place] 7.5-325] 1 - 2 tab PO Q6H PRN #32 tab PRN Reason: Pain Sennosides [Senokot] 2 tab PO DAILY PRN #60 tablet PRN Reason: Constipation No Action Potassium Chloride [Klor-Con 20] 20 meq PO DAILY Mv-Min/Folic/Vit K/Lut/Efth310 [Alive Women's 50 Plus Tablet] 1 each PO DAILY Ubidecarenone [Co Q-10] 100 mg PO QAM Metoprolol Succinate [Toprol XL] 25 mg PO DAILY Turmeric Root Extract [Turmeric] 500 mg PO DAILY Aspirin [Adult Low Dose Aspirin EC] 81 mg PO DAILY Ferrous Sulfate [Iron] 325 mg PO QAM Cyanocobalamin (Vitamin B-12) [Vitamin B-12] 1,000 mcg PO QAM Enalapril/Hydrochlorothiazide [Vaseretic 5-12.5 mg] 1 tab PO DAILY Discharge Medication List Aspirin [Adult Low Dose Aspirin EC] 81 mg PO DAILY 04/26/21 [History] Cyanocobalamin (Vitamin B-12) [Vitamin B-12] 1,000 mcg PO QAM 04/26/21 [History] Enalapril/Hydrochlorothiazide [Vaseretic 5-12.5 mg] 1 tab PO DAILY 04/26/21 [History] Ferrous Sulfate [Iron] 325 mg PO QAM 04/26/21 [History] Metoprolol Succinate [Toprol XL] 25 mg PO DAILY 04/26/21 [History] Mv-Min/Folic/Vit K/Lut/Nqyk207 [Alive Women's 50 Plus Tablet] 1 each PO DAILY 04/26/21 [History] Potassium Chloride [Klor-Con 20] 20 meq PO DAILY 04/26/21 [History] Ubidecarenone [Co Q-10] 100 mg PO QAM 04/26/21 [History] Turmeric Root Extract [Turmeric] 500 mg PO DAILY 11/05/22 [History] Aspirin 325 mg PO BID #60 tab 11/06/22 [Rx] HYDROcodone/APAP 7.5-325MG [[place] 7.5-325] 1 - 2 tab PO Q6H PRN #32 tab 11/06/22 [Rx] Sennosides [Senokot] 2 tab PO DAILY PRN #60 tablet 11/06/22 [Rx] Follow up Appointment(s)/Referral(s): Arjun Horn DO [Doctor of Osteopathic Medicine] - 2 Weeks Activity/Diet/Wound Care/Special Instructions: Weightbearing as tolerated with walker. Leave dressing intact. Dressing may be removed by home care nurse or by patient in 7 days. Then change dressing twice daily until follow up. May shower with initial dressing intact and after removal. If dressing become saturated, please remove. Please take aspirin 325mg twice daily for 30 days to prevent blood clots. Recommend use of compression stockings daily until follow up to help prevent swelling and blood clots. May remove at night before sleeping. Please follow-up with [facility] in 2 weeks and call with any questions or concerns, . Discharge Disposition: HOME WITH HOME HEALTH SERVICES
--- NOTE | 2022-11-07 12:55 | P.PN ---
Subjective Progress Note Date: 11/07/22 Patient is a pleasant 77-year-old female came in for is a tablet arthrosis, revision of him arthroplasty was attempted and was unsuccessful as they were unable to remove the previous hardware. Patient denied any fever chills nausea vomiting abdominal pain dysuria. Patient does have history of hypertension and rheumatoid arthritis. 11/07/2022 Patient is evaluated today sitting up in chair. Patient is status post attempted revision of right hip arthroplasty. Patient reports pain to the right hip site today about 4/10 which is controlled with current pain regimen. Patient did have an episode of nausea and vomiting ultrasound technol secondary to pain medications which has improved with zofran and will provide patient with zofran on discharge. No acute events overnight. Orthopedics recommending aspirin 325 mg bid for 30 days. Patient has physical therapy set up at home and will continue. Patient is afebrile today, heart rate of 64, blood pressure 116/62, 93% room air. Review of Systems Constitutional: Denied any fatigue denied any fever. Cardio vascular: denied any chest pain, palpitations Gastrointestinal: denied any diarrhea, reports episode of nausea, diarrhea Pulmonary: Denied any shortness of breath cough Neurologic denied any new focal deficits All inpatient medications were reviewed and appropriate changes in these medications as dictated in the interval history and assessment and plan. PHYSICAL EXAMINATION: GENERAL: The patient is alert and oriented x3, not in any acute distress. Well developed, well nourished. HEENT: Pupils are round and equally reacting to light. EOMI. No scleral icterus. No conjunctival pallor. Normocephalic, atraumatic. No pharyngeal erythema. No t hyromegaly. CARDIOVASCULAR: S1 and S2 present. No murmurs, rubs, or gallops. PULMONARY: Chest is clear to auscultation, no wheezing or crackles. ABDOMEN: Soft, nontender, nondistended, normoactive bowel sounds. No palpable organomegaly. MUSCULOSKELETAL: Deferred to orthopedic surgery EXTREMITIES: No cyanosis, clubbing, or pedal edema. NEUROLOGICAL: Gross neurological examination did not reveal any focal deficits. SKIN: No rashes. Assessment and plan -Hypertension: resume home medications on discharge. -Right hip failed revision arthroplasty further management as per primary service try and avoid opiates considering patients age -nausea secondary to opiates patient is receiving zofran and improved symptoms -History of gout -History of rheumatoid arthritis DVT prophylaxis: As per primary service GI prophylaxis Full Code Medically cleared for discharge. Continue aspirin 325 mg BID per orthopedics. Continue to work with physical therapy. Use incentive spirometer as recommended 10 x an hour. Pain management and bowel regimen in place. Zofran given for nausea. Recommend to follow up with your primary provider on discharge. Cleared medically. Thank you for this consultation The impression and plan of care has been dictated by Earlene Santiago, Nurse Practitioner as directed. Dr. Ray MD I have performed a history and physical examination and medical decision making of this patient, discussed the same with the dictator, and agree with the dictators assessment and plan as written, documented as a scribe. Based on total visit time, I have performed more than 50% of this visit. Objective - Vital Signs Vital signs: Vital Signs Temp 98.8 F 11/07/22 07:00 Pulse 64 11/07/22 07:00 Resp 16 11/07/22 07:00 BP 116/62 11/07/22 07:00 Pulse Ox 93 L 11/07/22 07:00 FiO2 Intake & Output 11/06/22 11/07/22 11/07/22 18:59 06:59 18:59 Intake Total 850 Output Total 100 Balance 750 Weight 76.3 kg Intake: IV 850 Output: Estimated Blood Loss 100 Other: Voiding Method Toilet Toilet # Voids 1 4 - Labs CBC & Chem 7: 11/07/22 05:03 Labs: Abnormal Lab Results - Last 24 Hours (Table) 11/07/22 Range/Units 05:03 RBC 3.85 L (4.10-5.20) X 10*6/uL Hgb 10.7 L (12.0-15.0) g/dL Hct 33.1 L (37.2-46.3) % Plt Count 114 L (140-440) X 10*3/uL Eosinophils # 0.03 L (0.04-0.35) X 10*3/uL Assessment and Plan Time with Patient: Less than 30
== END 2022-11-07 13:02 | disposition home health service (06) ==
LOC: OR 05:32 → 4SSUR 08:56 → OR 11-07 13:02
PROVIDERS: ATTEND Orthopaedic Surgery
DX: M16.7 Other unilateral secondary osteoarthritis of hip (principal); G89.18 Other acute postprocedural pain; I10 Essential (primary) hypertension; M06.9 Rheumatoid arthritis, unspecified; M10.9 Gout, unspecified; Z90.49 Acquired absence of other specified parts of digestive tract; Z90.710 Acquired absence of both cervix and uterus; Z98.41 Cataract extraction status, right eye; Z90.89 Acquired absence of other organs; Z98.42 Cataract extraction status, left eye; Z82.49 Family history of ischemic heart disease and other diseases of the circulatory system; Z79.82 Long term (current) use of aspirin; Z79.899 Other long term (current) drug therapy; Z88.5 Allergy status to narcotic agent
CPT/HCPCS: 97116; 97162; 97535; 97166; 64447; 76942; 85025; 73501; 27125; J2250; J1100; J0690 ×2; J2405 ×2; J3010; J2795; J2704; 86850; 86900; 86901

== ENCOUNTER → 2023-02-28 | Outpatient (CLI) | payer MEDICARE, OTHER ==
[2023-02-28 13:44] LABS: INR 0.9 (<1.2); Partial Thromboplastin Time 24.2 sec (22.0-30.0)
[2023-02-28 16:05] LABS: HCT 41.3 % (37.2-50.0); HGB 12.8 d/dL (12.0-15.0); MCV 87.1 FL (80.0-97.0); Mean Platelet Volume 10.4 FL (9.5-12.2); NRBC Per 100 WBC 0 X 10*3/uL (0.00-0.01); Platelet Count 251 X 10*3/uL (140-440); RBC 4.74 X 10*6/uL (4.10-5.60); RDW 12.9 % (11.5-14.5); WBC 4.45 X 10*3/uL (4.50-10.00)
[2023-02-28 16:24] LABS: ALT 13 U/L (8-49); AST 20 U/L (13-35); Albumin 3.9 d/dL (3.8-4.9); Albumin/Globulin Ratio 1.34 Ratio (1.60-3.17); Alkaline Phosphatase 102 U/L (41-126); BUN/Creat Ratio 11.44 Ratio (12.00-20.00); Blood Urea Nitrogen 10.3 mg/dL (9.0-27.0); Calcium 9.3 mg/dL (8.7-10.3); Carbon Dioxide 26.7 mmol/L (21.6-31.8); Chloride 102 mmol/L (96-109); Globulin 2.9 d/dL (1.6-3.3); Glucose 82 mg/dL (70-110); Potassium 3.7 mmol/L (3.5-5.5); Sodium 141 mmol/L (135-145); Total Bilirubin 0.5 mg/dL (0.3-1.2); Total Protein 6.8 d/dL (6.2-8.2)
[2023-02-28 16:38] LABS: Appearance,Urine Clear (Clear); Bilirubin,Urine Negative (Negative); Blood,Urine Trace (Negative); Color,Urine Yellow (Yellow); Ketones,Urine Negative (Negative); Nitrite,Urine Negative (Negative); PH, Urine 6.5; Specific Gravity,Urine 1.008 (1.001-1.030); Urobilinogen,Urine 0.2 E.U./DL
[2023-02-28 17:05] LABS: Bacteria,Urine None Seen (None Seen)
== END | disposition home or self-care (01) ==
LOC: LABPAT 11:20
PROVIDERS: ATTEND Orthopaedic Surgery
DX: Z01.818 Encounter for other preprocedural examination (principal); T84.84XS Pain due to internal orthopedic prosthetic devices, implants and grafts, sequela
CPT/HCPCS: 80053; 81001; 85027; 85610; 85730; 87070; 93005

== ENCOUNTER 2023-03-12 09:20 | Inpatient (IN) | payer MEDICARE, OTHER ==
[2023-03-07 10:07] VITALS: BMI 25.0
[~2023-03-12 09:20] MED LIST changes: +DEXAMETHASONE SOD PHOSPHATE 4 MG/ML 1 ML VIAL IV ONE; +MIDAZOLAM 2 MG/2 ML VIAL IV PRN; +ONDANSETRON 4 MG/2 ML VIAL IVP ONE; +TRANEXAMIC 1,000 MG/100ML-NACL 1,000 MG in SALINE 1 100ML.BAG IVPB PRN; -TRANEXAMIC ACID IN NACL,ISO-OS 1,000 MG in SALINE 1 100ML.BAG IVPB PRN
[2023-03-12] MEDS: LACTATED RINGERS 1,000 ML IV SCH (09:58)
[2023-03-12] MEDS ORDERED: fentaNYL (PF) 50 MCG/ML 2 ML AMP IVP ONE (10:47)
--- NOTE | 2023-03-12 10:58 | P.ANPRN ---
Procedure Note - Anesthesia - Nerve Block Performed Right Russ Single Time Out Performed: Yes Date of Procedure: 03/12/23 Procedure Start Time: 10:46 Procedure Stop Time: 10:53 Location of Patient: PreOp Indication: Acute Post-Operative Pain, Requested by Surgeon Sedation Type: Sedate with meaningful contact maintained Preparation: Sterile Prep Position: Supine Needle Types: Pajunk Needle Gauge: 21 Ultrasound used to visualize needle placement: Yes Ultrasound used to observe medication spread: Yes Injectate: 0.5% Ropivacaine (see comment for volume) (20ml) Blood Aspirated: No Pain Paresthesia on Injection Noted: No Resistance on Injection: Normal Image Stored and Saved: Yes Events: Uneventful and Well Tolerated
[2023-03-12] MEDS ORDERED: PROPOFOL 10 MG/ML 20 ML VIAL IV ONE (11:40)
[2023-03-12] MEDS ORDERED: LIDOCAINE 2% INJ 20 MG/ML (2 ML VIAL) ONE (11:40)
[2023-03-12] MEDS ORDERED: TRANEXAMIC 1,000 MG/100ML-NACL PREMIX BAG ONE (11:40)
[2023-03-12] MEDS ORDERED: SUCCINYLCHOLINE CHLORIDE 200 MG/10 ML VIAL IV ONE (11:40)
[2023-03-12] MEDS ORDERED: ePHEDrine 50 MG/ML 1 ML VIAL ONE (11:40)
[2023-03-12] MEDS ORDERED: HYDROmorphone (PF) 1 MG/ML ONE (11:40)
[2023-03-12] MEDS ORDERED: fentaNYL (PF) 50 MCG/ML 2 ML AMP ONE (11:40)
[2023-03-12] MEDS ORDERED: PHENYLEPHRINE-0.9% NACL SYG 1,000 MCG/10 ML SYRINGE ONE (11:40)
[2023-03-12] MEDS ORDERED: ROPIVACAINE 5 MG/ML 30 ML VIAL ONE (11:40)
[2023-03-12] MEDS ORDERED: ceFAZolin 1,000 MG in SODIUM CHLORIDE 0.9% 1,000 ML IRRIGATION ONE (11:45)
[2023-03-12] MEDS ORDERED: SODIUM CHLORIDE 0.9% 500 ML 500 ML IV ONE (11:55)
[2023-03-12] MEDS ORDERED: LACTATED RINGERS 1,000 ML IV ONE ×2 (12:05→13:53)
--- NOTE | 2023-03-12 14:34 | P.OP ---
Date of Procedure: 03/12/23 Preoperative Diagnosis: Failed hemiarthroplasty right hip Postoperative Diagnosis: Failed hemiarthroplasty right hip Procedure(s) Performed: Revision right total hip arthroplasty Implants: [employer] Redapt femoral stem standard size 14 [employer] R3, multi- hole hemispherical acetabular shell, 52 mm [employer] Reflection 6.5 mm cancellus screw, 20 mm, 15 mm [employer] OR30, 40 mm ID, 52 mm OD, Oxinium dual mobility liner [employer] OR30, 22 mm ID, 40 mm OD, XLPE Dual mobility insert [employer] Oxinium femoral head 22 m, +4 All components were press-fit. The articulation is Oxinium on polyethylene. Anesthesia: DIMAS Surgeon: Arjun Horn Payroll Associate #1: Yessenia Salinas Estimated Blood Loss (ml): 1,000 Pathology: none sent Condition: stable Disposition: PACU Indications for Procedure: This is a 77-year-old female that had a hemiarthroplasty for femoral neck fracture in 2014 she subsequently developed significant pain in her groin from acetabular wear of the hemiarthroplasty femoral head. In October 2022, and attempted conversion to a total hip arthroplasty was attempted. This is unsuccessful because the modular adapter was cold welded to the femoral component. Since it was unable to be removed the hemiarthroplasty was placed back on the trunnion. Postoperatively she continued to have significant pain and after discussing the surgical nonsurgical treatment options with her at length she wished to proceed with a revision of her right total hip arthroplasty with probable extended trochanteric osteotomy for removal of the femoral stem. She is aware of the significance of the surgery and informed consent was obtained. Operative Findings: The operative findings are consistent with a failed right hip hemiarthroplasty. Description of Procedure: Patient was seen and evaluated in the preoperative area, consent was reviewed and the operative site was marked with a skin marker. Patient was then brought to the operating room and given 2 g of Ancef intravenously. A general anesthetic was administered by the anesthesia department. Patient was then placed in a lateral decubitus position and held with [facility]. The bony prominences were well-padded and an axillary roll was placed. The hip was then prepped and draped in the usual sterile fashion. A universal timeout was then performed which confirmed the patient's name, surgical site, ALLERGIES, and procedure. A standard anterolateral approach the hip was performed. Skin and subcutaneous tissues were sharply incised with an incision centered over the tip of the greater trochanter. The incision was carefully dissected down to the fascia. The fascia was then split in line with skin incision and a Charnley retractor w as gently placed. The abductors were then identified, and the anterior one third of the abductors were released off the trochanter and one large sleeve. Scar tissue was removed from the femoral head and the hip was gently dislocated. The femoral head was then removed with osteotome and a mallet. Again the trunnion adapter was found to be cold welded to the femoral stem. The proximal femur was then cleared of any scar tissue and a limited attempts to free the femoral stem was done with flexible osteotomes. After this was unsuccessful, an extended trochanteric osteotomy was then performed. The femoral component was then freed from the cortical bone using a Gigli saw. After the femoral component was removed attention was directed to the acetabulum. The acetabulum was then exposed and any remaining scar tissue was excised sharply. Sequential reaming of the acetabulum was performed to 52 mm. 52 mm trial was then placed and found to have a secure fit. Final size component was then impacted at 40 of abduction and 20 of anteversion and fully seated in the acetabulum. 2 screws were then placed in the acetabulum. The dual mobility insert was impacted in the acetabulum with component locking being confirmed. Attention was then redirected to the femur. Proximal femur was re-exposed. A merchandising assistant was then used to locate the femoral canal. A pedestal was encountered and this was easily removed with sequential drilling. Next, the osteotomy was temporarily held with 4 cables. Sequential reaming was then performed to good cortical contact. The trials were then placed. The hip was then gently reduced. Leg lengths were checked and found to be equal. Hip was then taken through a full range of motion was stable throughout. The hip was then gently dislocated with the aid of a bone hook. The trial head and neck were then removed. The hip was then copiously irrigated with antibiotic solution with a pulse lavage. Components were then opened and the femoral stem was then impacted into the proximal femur. The trunnion was cleaned and dried, and the femoral head and neck were then impacted. Prior to reduction the femoral osteotomy was then secured using 6 cables. Hip was again gently reduced. Again leg lengths were checked and found to be equal, and the hip was taken through a full range of motion and found to be stable. The hip was again irrigated with pulsatile lavage, then followed by the Irrrisept solution. The abductors were then repaired through drill holes to the bone to the greater trochanter, utilizing #5 Ethibond suture. Next the fascia was repaired with #2 strata fix suture. The subcutaneous tissue was then repaired with 3-0 Vicryl. The subcuticular tissue was then repaired with 3-0 strata fix suture. Skin was then closed with Exofin skin glue. A sterile dressing was then applied and the patient was transported to the recovery room in stable condition. Payroll Associate AALIYAH Verdugo was required due to the complexity of surgery the need for skilled surgical scrub tech. She assisted with positioning the patient, draping the patient, retraction during the surgery, and closure of the wound.
[2023-03-12] MEDS ORDERED: HYDROmorphone 0.5 MG/0.5 ML SYRINGE IVP PRN ×3 (14:45)
[2023-03-12] MEDS ORDERED: MAGNESIUM HYDROXIDE 2,400 MG/30 ML CUP PO PRN (14:45)
[2023-03-12] MEDS ORDERED: NALOXONE 0.4 MG/ML 1 ML VIAL IV PRN (14:45)
[2023-03-12] MEDS ORDERED: traMADol 50 MG TAB PO PRN (14:50)
[2023-03-12] MEDS ORDERED: HYDROcodone/APAP 5-325MG 1 EACH TAB PO PRN ×2 (14:50)
[2023-03-12] MEDS: fentaNYL (PF) 50 MCG/ML 2 ML AMP IV PRN ×2 (15:27→15:48)
--- NOTE | 2023-03-12 15:40 | XR ---
EXAMINATION TYPE: XR Hip Limited RT DATE OF EXAM: 03/12/2023 COMPARISON: NONE HISTORY: Postop TECHNIQUE: One view submitted. FINDINGS: There is postsurgical change compatible hip replacement surgery. There is soft tissue air and soft ti ssue edema. This likely is postsurgical. Surgical clips are seen in the pelvis. Radio opaque densitie s along the greater and lesser trochanter are stable from the previous x-ray may be on the basis of previous postsurgical change or foreign body. SI joint arthropathy. IMPRESSION: 1. Postoperative change. Appears in near-anatomic alignment.
[2023-03-12] MEDS ORDERED: ONDANSETRON 4 MG/2 ML VIAL IVP ONE (16:18)
[2023-03-12] MEDS: SODIUM CHLORIDE 0.9% 1,000 ML IV SCH (17:38)
[2023-03-12] MEDS: SENNOSIDES-DOCUSATE SODIUM 1 EACH TAB PO SCH (22:21)
[2023-03-13] MEDS: traMADol 50 MG TAB PO PRN ×2 (01:43→08:30)
[2023-03-13] MEDS: ONDANSETRON 4 MG/2 ML VIAL IVP PRN (04:35)
[2023-03-13] MEDS: METOPROLOL SUCCINATE (ER) 25 MG TAB.ER.24H PO SCH (07:56)
[2023-03-13] MEDS: RIVAROXABAN 10 MG TAB PO SCH (08:29)
[2023-03-13] MEDS: FERROUS SULFATE 325 MG TAB PO SCH (08:29)
[2023-03-13] MEDS: CYANOCOBALAMIN 500 MCG TAB PO SCH (08:29)
[2023-03-13] MEDS: FAMOTIDINE 20 MG TAB PO SCH (08:29)
[2023-03-13] MEDS: SODIUM CHLORIDE 0.9% 1,000 ML IV SCH ×2 (10:13→20:10)
[2023-03-13] MEDS: LACTATED RINGERS 1,000 ML IV SCH (10:13)
--- NOTE | 2023-03-13 11:04 | P.PN ---
Subjective Progress Note Date: 03/13/23 This is a 77-year-old female who is status post revision right total hip arthroplasty. This is postoperative day #1 and patient is seen and evaluated at bedside with Dr. Arjun Horn. Patient states that her pain is controlled, but she has been nauseous. Patient has also had low blood pressure this morning. Patient states that she was able to walk with physical therapy, but is limited by her nausea today. Patient denies any fever/chills, numbness, weakness, tingling, abdominal pain, shortness of breath or chest pain. Objective - Vital Signs Vital signs: Vital Signs Temp 98.1 F 03/13/23 07:10 Pulse 77 03/13/23 10:50 Resp 19 03/13/23 07:10 BP 95/57 03/13/23 10:50 Pulse Ox 97 03/13/23 07:10 FiO2 Intake & Output 03/12/23 03/13/23 03/13/23 18:59 06:59 18:59 Intake Total 2251 Output Total 1000 Balance 1251 Weight 74.5 kg Intake: IV 2251 Output: Estimated Blood Loss 1000 Other: Voiding Method Bedpan # Voids 1 3 - Exam Vital signs are stable. Patient is in no acute distress and is alert and oriented 3. Calf is soft and nontender to palpation. Dressing is clean, dry, and intact. Patient has full foot and ankle motion without pain or difficulty. Sensation intact. Neurovascular status and circulatory status are intact. Assessment and Plan (1) Pain in hip region after total hip replacement Current Visit: Yes Status: Acute Code(s): T84.84XA - PAIN DUE TO INTERNAL ORTHOPEDIC PROSTH DEV/GRFT, INIT; Z96.649 - PRESENCE OF UNSPECIFIED ARTIFICIAL HIP JOINT SNOMED Code(s): 56548126 (2) S/P revision of total hip Current Visit: Yes Status: Acute Code(s): Z96.649 - PRESENCE OF UNSPECIFIED ARTIFICIAL HIP JOINT SNOMED Code(s): 780949599 Plan: Continue routine postop care and pain control. Continue hip dislocation precautions for 6 weeks. Continue anticoagulation with Xarelto. Toe-touch weightbearing with a walker. Continue physical therapy. Leave dressing in place for 7 days. Appreciate input from internal medicine. CBC is pending. Anticipate discharge to [facility].
[2023-03-13 11:56] LABS: Basophils # (A) 0.01 X 10*3/uL (0.00-0.10); Basophils % (A) 0.1 %; Eosinophils # (A) 0 X 10*3/uL (0.04-0.35); Eosinophils % (A) 0 %; HCT 25.3 % (37.2-50.0); HGB 8.1 d/dL (12.0-17.0); Lymphocytes # (A) 1.46 X 10*3/uL (0.90-5.00); Lymphocytes % (A) 19.2 %; MCH 27.6 pg (27.0-32.0); MCV 86.1 FL (80.0-97.0); Mean Platelet Volume 10.2 FL (9.5-12.2); Monocytes # (A) 0.73 X 10*3/uL (0.20-1.00); Monocytes % (A) 9.6 %; NRBC Per 100 WBC 0 X 10*3/uL (0.00-0.01); Neutrophils # (A) 5.38 X 10*3/uL (1.80-7.70); Neutrophils % (A) 70.8 %; Platelet Count 222 X 10*3/uL (140-440); RBC 2.94 X 10*6/uL (4.10-5.60); RDW 13.2 % (11.5-14.5)
[2023-03-13] MEDS: MULTIVITAMINS, THERA 1 EACH TAB PO SCH (13:31)
--- NOTE | 2023-03-13 15:48 | P.CONS ---
History of Present Illness - Reason for Consult Consult date: 03/13/23 Medical management Requesting physician: Arjun Horn - Chief Complaint Right hip surgery - History of Present Illness This is a very pleasant 77-year-old patient, follows Dr. Bacon. Patient is undergoing right total hip arthroplasty. Pain control. Sitting up in a recliner. Became dizzy lightheaded nausea with standing up today. Blood pressures found to be low. IV fluids given. Blood pressure medications were held. No fever no chills. Patient's son at the bedside. Tired. Review of systems: GEN.: Tired EYES: None HEENT: None NECK: None RESPIRATORY: None CARDIOVASCULAR: None GASTROINTESTINAL: None GENITOURINARY: None MUSCULOSKELETAL: Joint pains LYMPHATICS: None HEMATOLOGICAL: None PSYCHIATRY: None NEUROLOGICAL: None Past medical history to include: GERD, hypertension, osteomyelitis, rheumatoid arthritis, gets monthly infusions of Dr. Casarez. Social history: Lives alone. Does use a walker. No smoking or alcohol. Physical examination: VITAL SIGNS: 98.1, 80, 19, 84/50, 97% room air GENERAL: BMI 25.7, declining in chair awake tired. EYES: [Pupils equal. Conjunctiva pale l. HEENT: External appearance of nose and ears normal, oral cavity grossly normal. NECK: JVD not raised; masses not palpable. HEART: First and second heart sounds are normal; no edema. LUNGS: Respiratory rate normal; clear to auscultation. ABDOMEN: Soft, nontender, liver spleen not palpable, no masses palpable. PSYCH: Alert and oriented x3; mood and affect normal. MUSCULOSKELETAL:No Clubbing/cyanosis;muscles-grossly intact. Dressing over the right hip incision site. OA. NEUROLOGICAL: Cranial nerves grossly intact; no facial asymmetry, power and sensation grossly intact. LYMPHATICS: No lymph nodes palpable in the axilla and neck INVESTIGATIONS, reviewed in the clinical context: March 13: White count 7.6 hemoglobin 8.1 platelets 222 Prior labs: 03/08/2023: Hemoglobin 12.8 platelets 251 potassium 3.7 BUN 10.3 creatinine 0.9 Assessment plan: -Revision right total hip arthroplasty, by Dr. Arjun Raza for DVT prophylaxis -Acute hypotension symptomatic from blood loss IV fluids. -Acute postprocedure blood loss anemia expected from surgery IV Ferrlecit 2 -Essential hypertension, currently blood pressure running low. Hold antihypertensive -Primary osteoarthritis Pain control -Chronic gait dysfunction uses a walker at baseline -Full code Care was discussed with the patient and son at the bedside. Thank you Dr. Horn Past Medical History Past Medical History: GERD/Reflux, Hypertension, Osteoarthritis (OA), Rheumatoid Arthritis (RA) Additional Past Medical History / Comment(s): port right chest- receives infusions monthly at Dr Casarez's office for RA., hx of fall with hip fx 2014 with surgeries., Pain right hip, using cane and walker. History of Any Multi-Drug Resistant Organisms: None Reported Past Surgical History: Appendectomy, Cholecystectomy, Hysterectomy, Joint Replacement Additional Past Surgical History / Comment(s): Left thyroidectomy, right hip replaced 2014, cataracts , left knee replaced, Left ankle benign tumor removal. fx right hip with hemiarthroplasty (2014), attempted revision right hip with unsuccessful removal of hardware. Past Anesthesia/Blood Transfusion Reactions: No Reported Reaction Smoking Status: Never smoker - Past Family History Sister(s) Family Medical History: Cancer Son(s) Family Medical History: Deep Vein Thrombosis (DVT) Father Family Medical History: Unable to Obtain Medications and Allergies Home Medications Medication Instructions Recorded Confirmed Type Cyanocobalamin (Vitamin B-12) 1,000 mcg PO DAILY 04/26/21 03/12/23 History [Vitamin B-12] Enalapril/Hydrochlorothiazide 1 tab PO DAILY 04/26/21 03/12/23 History [Vaseretic 5-12.5 mg] Ferrous Sulfate [Iron] 325 mg PO DAILY 04/26/21 03/12/23 History Metoprolol Succinate [Toprol XL] 25 mg PO DAILY 04/26/21 03/12/23 History Mv-Min/Folic/Vit K/Lut/Jqpm785 1 each PO DAILY 04/26/21 03/12/23 History [Alive Women's 50 Plus Tablet] Potassium Chloride [Klor-Con 20] 20 meq PO DAILY 04/26/21 03/12/23 History Ubidecarenone [Co Q-10] 100 mg PO DAILY 04/26/21 03/12/23 History Turmeric Root Extract [Turmeric] 500 mg PO DAILY 11/05/22 03/12/23 History Acetaminophen [Tylenol Arthritis] 650 mg PO DIRECTED PRN 03/07/23 03/12/23 History Aspirin [Adult Low Dose Aspirin EC] 81 mg PO DAILY 03/07/23 03/12/23 History Famotidine [Pepcid] 20 mg PO DAILY 03/07/23 03/12/23 History Ibuprofen [Motrin Ib] 200 - 400 mg PO Q8H PRN 03/07/23 03/12/23 History Monthly Infusions For Ra 1 dose IV QMONTHLY 03/07/23 03/12/23 History Rivaroxaban [Xarelto] 10 mg PO DAILY #30 tab 03/12/23 Rx Sennosides [Senokot] 2 tab PO DAILY PRN #60 tablet 03/12/23 Rx traMADol HCl [Ultram] 1 - 2 tab PO Q6H PRN #32 tab 03/12/23 Rx Allergies Allergy/AdvReac Type Severity Reaction Status Date / Time hydrocodone AdvReac Nausea Verified 03/12/23 12:51 morphine AdvReac Nausea & Verified 03/12/23 09:59 Vomiting Physical Exam Vitals: Vital Signs Temp Pulse Resp BP BP Pulse Ox 03/13/23 09:47 80 03/13/23 08:30 90/50 03/13/23 08:26 98/50 03/13/23 07:10 98.1 F 80 19 84/50 82/49 97 03/13/23 02:00 97.4 F L 65 103/65 100 03/12/23 19:38 65 96/61 91 L 03/12/23 19:03 64 101/61 100 03/12/23 18:32 62 120/77 100 03/12/23 18:17 70 117/79 90 L 03/12/23 18:02 59 L 106/65 100 03/12/23 17:47 60 114/73 100 03/12/23 17:32 67 111/73 100 03/12/23 17:04 72 114/60 97 03/12/23 16:58 65 23 127/80 100 03/12/23 16:07 61 16 100/48 100 03/12/23 15:52 60 16 100/52 100 03/12/23 15:25 60 16 110/63 100 03/12/23 15:10 59 L 16 105/48 100 03/12/23 14:55 63 16 100/71 100 03/12/23 14:40 97.3 F L 69 16 101/53 99 03/12/23 11:00 68 16 148/75 100 03/12/23 10:30 98.0 F 74 16 133/76 99 Intake and Output 03/12/23 03/13/23 03/13/23 22:59 06:59 14:59 Intake Total 100 Balance 100 Intake: IV 100 Other: Voiding Method Bedpan # Voids 2 3 Weight 74.5 kg Results CBC & Chem 7: 03/13/23 06:41
[2023-03-13] MEDS: SODIUM FERRIC GLUCONAT-SUCROSE 125 MG in SODIUM CHLORIDE 0.9% 100 ML IVPB SCH (16:30)
[2023-03-13] MEDS: SENNOSIDES-DOCUSATE SODIUM 1 EACH TAB PO SCH (20:10)
[2023-03-14] MEDS: ASPIRIN 81 MG PO SCH (08:41)
[2023-03-14] MEDS: FERROUS SULFATE 325 MG TAB PO SCH (08:42)
[2023-03-14] MEDS: CYANOCOBALAMIN 500 MCG TAB PO SCH (08:42)
[2023-03-14] MEDS: FAMOTIDINE 20 MG TAB PO SCH (08:42)
[2023-03-14] MEDS: MULTIVITAMINS, THERA 1 EACH TAB PO SCH (08:43)
[2023-03-14] MEDS: METOPROLOL SUCCINATE (ER) 25 MG TAB.ER.24H PO SCH (08:43)
[2023-03-14] MEDS: RIVAROXABAN 10 MG TAB PO SCH (08:44)
[2023-03-14] MEDS: SODIUM FERRIC GLUCONAT-SUCROSE 125 MG in SODIUM CHLORIDE 0.9% 100 ML IVPB SCH (09:16)
[2023-03-14] MEDS: LACTATED RINGERS 1,000 ML IV SCH (14:07)
--- NOTE | 2023-03-14 15:28 | P.PN ---
Subjective Progress Note Date: 03/14/23 This is a 77-year-old female who is status post revision right total hip arthroplasty. This is postoperative day #2 and patient is seen and evaluated at bedside today. Patient states that her pain is well-controlled and she was able to work with physical therapy today. Patient states that her nausea is improving. Patient denies any fever/chills, numbness, weakness, tingling, abdominal pain, shortness of breath or chest pain. Objective - Vital Signs Vital signs: Vital Signs Temp 98.4 F 03/14/23 07:21 Pulse 92 03/14/23 07:21 Resp 15 03/14/23 07:21 BP 116/68 03/14/23 07:21 Pulse Ox 96 03/14/23 09:51 FiO2 Intake & Output 03/13/23 03/14/23 03/14/23 18:59 06:59 18:59 Other: # Voids 3 1 - Exam Vital signs are stable. Patient is in no acute distress and is alert and oriented 3. Calf is soft and nontender to palpation. Dressing is clean, dry, and intact. Patient has full foot and ankle motion without pain or difficulty. Sensation intact. Neurovascular status and circulatory status are intact. - Labs CBC & Chem 7: 03/13/23 06:41 Assessment and Plan (1) Pain in hip region after total hip replacement Current Visit: Yes Status: Acute Code(s): T84.84XA - PAIN DUE TO INTERNAL ORTHOPEDIC PROSTH DEV/GRFT, INIT; Z96.649 - PRESENCE OF UNSPECIFIED ARTIFICIAL HIP JOINT SNOMED Code(s): 52930292 (2) S/P revision of total hip Current Visit: Yes Status: Acute Code(s): Z96.649 - PRESENCE OF UNSPECIFIED ARTIFICIAL HIP JOINT SNOMED Code(s): 624408837 Plan: Continue routine postop care and pain control. Continue hip dislocation precautions for 6 weeks. Continue anticoagulation with Xarelto. Toe-touch weightbearing with a walker. Continue physical therapy. Leave dressing in place for 7 days. Appreciate input from internal medicine. [facility]
--- NOTE | 2023-03-14 15:54 | P.PN ---
Progress Note - Text Progress Note Date: 03/14/23 - Chief Complaint Right hip surgery - History of Present Illness This is a very pleasant 77-year-old patient, follows Dr. Bacon. Patient is undergoing right total hip arthroplasty. Pain control. Sitting up in a recliner. Became dizzy lightheaded nausea with standing up today. Blood pressures found to be low. IV fluids given. Blood pressure medications were held. No fever no chills. Patient's son at the bedside. Tired. March 14: Up in a recliner. Did walk some. Some pain in the operative site. Eating better. No nausea vomiting. Lightheaded dizziness much better. Getting IV Ferrlecit Active Medications Hydrocodone Bitart/Acetaminophen (Hydrocodone/Apap 5-325mg 1 Each Tab) 1 each PO Q6HR PRN PRN Reason: Pain Scale 1 to 5 Stop: 04/11/23 14:51 Hydrocodone Bitart/Acetaminophen (Hydrocodone/Apap 5-325mg 1 Each Tab) 2 each PO Q6HR PRN PRN Reason: Pain Scale 6 to 10 Stop: 04/11/23 14:51 Aspirin (Aspirin 81 Mg) 81 mg PO DAILY [facility] Last Admin: 03/14/23 08:41 Dose: 81 mg Cyanocobalamin (Cyanocobalamin 500 Mcg Tab) 1,000 mcg PO DAILY [facility] Last Admin: 03/14/23 08:42 Dose: 1,000 mcg Famotidine (Famotidine 20 Mg Tab) 20 mg PO DAILY [facility] Last Admin: 03/14/23 08:42 Dose: 20 mg Ferrous Sulfate (Ferrous Sulfate 325 Mg Tab) 325 mg PO DAILY [facility] Last Admin: 03/14/23 08:42 Dose: 325 mg Hydromorphone HCl (Hydromorphone 0.5 Mg/0.5 Ml Syringe) 0.125 mg IVP Q3HR PRN PRN Reason: Pain Scale 1 to 3 Stop: 04/11/23 14:46 Hydromorphone HCl (Hydromorphone 0.5 Mg/0.5 Ml Syringe) 0.5 mg IVP Q3HR PRN PRN Reason: Pain Scale 7 to 10 Stop: 04/11/23 14:46 Last Admin: 03/12/23 17:11 Dose: 0.5 mg Hydromorphone HCl (Hydromorphone 0.5 Mg/0.5 Ml Syringe) 0.25 mg IVP Q3HR PRN PRN Reason: Pain Scale 4 to 6 Stop: 04/11/23 14:46 Lactated Ringer's (Lactated Ringers) 1,000 mls @ 20 mls/hr IV .Q24H [facility] Stop: 04/11/23 05:56 Last Admin: 03/14/23 14:07 Dose: Not Given Sodium Chloride (Saline 0.9%) 1,000 mls @ 65 mls/hr IV .[id number] [facility] Stop: 04/11/23 14:46 Last Admin: 03/13/23 20:10 Dose: 65 mls/hr Magnesium Hydroxide (Magnesium Hydroxide 2,400 Mg/30 Ml Cup) 2,400 mg PO DAILY PRN PRN Reason: Constipation Stop: 04/11/23 14:46 Metoprolol Succinate (Metoprolol Succinate (Er) 25 Mg Tab.Er.24h) 25 mg PO DAILY [facility] Last Admin: 03/14/23 08:43 Dose: 25 mg Multivitamins (Multivitamins, Thera 1 Each Tab) 1 each PO DAILY [facility] Last Admin: 03/14/23 08:43 Dose: 1 each Naloxone HCl (Naloxone 0.4 Mg/Ml 1 Ml Vial) 0.2 mg IV Q2M PRN PRN Reason: Opioid Reversal Stop: 04/11/23 14:46 Ondansetron HCl (Ondansetron 4 Mg/2 Ml Vial) 4 mg IVP Q8H PRN PRN Reason: Nausea And Vomiting Stop: 04/11/23 14:46 Last Admin: 03/13/23 04:35 Dose: 4 mg Rivaroxaban (Rivaroxaban 10 Mg Tab) 10 mg PO DAILY [facility]; Protocol Stop: 04/17/23 09:01 Last Admin: 03/14/23 08:44 Dose: 10 mg Senna/Docusate Sodium (Sennosides-Docusate Sodium 1 Each Tab) 2 each PO HS [facility] Stop: 04/11/23 21:01 Last Admin: 03/13/23 20:10 Dose: 2 each Tramadol HCl (Tramadol 50 Mg Tab) 50 mg PO Q6H PRN PRN Reason: Pain Scale 1 to 5 Stop: 04/11/23 14:51 Last Admin: 03/13/23 08:30 Dose: 50 mg Tramadol HCl (Tramadol 50 Mg Tab) 100 mg PO QID PRN PRN Reason: Pain Scale 6 to 10 Stop: 04/11/23 14:51 Past medical history to include: GERD, hypertension, osteomyelitis, rheumatoid arthritis, gets monthly infusions of Dr. Casarez. Social history: Lives alone. Does use a walker. No smoking or alcohol. Physical examination: VITAL SIGNS: 97.9, 90, 16, 132/66, 100% room air GENERAL: Laying up in a chair, comfortable EYES: [Pupils equal. Conjunctiva pale l. HEENT: External appearance of nose and ears normal, oral cavity grossly normal. NECK: JVD not raised; masses not palpable. HEART: First and second heart sounds are normal; no edema. LUNGS: Respiratory rate normal; clear to auscultation. ABDOMEN: Soft, nontender, liver spleen not palpable, no masses palpable. PSYCH: Alert and oriented x3; mood and affect normal. MUSCULOSKELETAL:No Clubbing/cyanosis;muscles-grossly intact. Dressing over the right hip incision site. OA. INVESTIGATIONS, reviewed in the clinical context: March 13: White count 7.6 hemoglobin 8.1 platelets 222 Prior labs: 03/08/2023: Hemoglobin 12.8 platelets 251 potassium 3.7 BUN 10.3 creatinine 0.9 Assessment plan: -Revision right total hip arthroplasty, by Dr. Arjun Raza for DVT prophylaxis -Acute hypotension symptomatic from blood loss: Better IV fluids. -Acute postprocedure blood loss anemia expected from surgery IV Ferrlecit 2 -Essential hypertension, initially blood pressure running low.: Improving Hold antihypertensive -Primary osteoarthritis Pain control -Chronic gait dysfunction uses a walker at baseline -Full code Discussed. possibly rehab tomorrow. Thank you Dr. Horn
[2023-03-14] MEDS: SODIUM CHLORIDE 0.9% 1,000 ML IV SCH (21:49)
[2023-03-14] MEDS: SENNOSIDES-DOCUSATE SODIUM 1 EACH TAB PO SCH (21:50)
[2023-03-15] MEDS: ONDANSETRON 4 MG/2 ML VIAL IVP PRN (02:10)
[2023-03-15] MEDS: FAMOTIDINE 20 MG TAB PO SCH (09:09)
[2023-03-15] MEDS: METOPROLOL SUCCINATE (ER) 25 MG TAB.ER.24H PO SCH (09:09)
[2023-03-15] MEDS: FERROUS SULFATE 325 MG TAB PO SCH (09:09)
[2023-03-15] MEDS: MULTIVITAMINS, THERA 1 EACH TAB PO SCH (09:09)
[2023-03-15] MEDS: RIVAROXABAN 10 MG TAB PO SCH (09:09)
[2023-03-15] MEDS: ASPIRIN 81 MG PO SCH (09:09)
[2023-03-15] MEDS: CYANOCOBALAMIN 500 MCG TAB PO SCH (09:09)
--- NOTE | 2023-03-15 10:42 | P.DS ---
Providers Date of admission: 03/12/23 09:21 Expected date of discharge: 03/15/23 Attending physician: Arjun Horn Consults: 03/12/23 14:45 Consult Physician Routine Consulting Provider: Prashanth Allen Consult Reason/Comments: medical management Do you want consulting provider notified?: Yes Primary care physician: [facility] Course: This is a 77-year-old female who underwent a right hip hemiarthroplasty in 2014 for femoral neck fracture. Patient continued to have pain, therefore revision was discussed. Patient elected to undergo a right revision total hip arthroplasty. Patient underwent right revision total hip arthroplasty on 03/12/[address] Horn. The patient is seen preoperatively her primary care doctor and cleared for surgery. Patient is admitted to [facility] on 03/12/23 for right revision total hip arthroplasty. The procedures performed without complication or sequelae. The patient is doing well postoperatively. Labs and vital signs are stable on day of discharge. Patient is examined bedside this morning. She is up to the bedside chair. She states the pain in her right hip is well-controlled at this time. She experienced mild nausea last night but this has resolved. She tolerated breakfast well. Patient denies chest pain, shortness of breath. On examination, patient is sitting up in the bedside chair in no apparent distress. She is alert and answers questions appropriately. On inspection of the right hip, there is a clean, dry, intact surgical dressing in place. No bleeding or drainage to the dressing. Mild swelling of the thigh, thigh is soft and compressible. Motor and sensory function intact right lower extremity. Right lower extremity warm and well perfused. Patient is discharge to rehab today, pending medical clearance. Please see med rec for accurate list of discharge medications. Plan - Discharge Summary Discharge Rx Participant: Yes New Discharge Prescriptions: New traMADol HCl [Ultram] 1 - 2 tab PO Q6H PRN #32 tab PRN Reason: Pain Sennosides [Senokot] 2 tab PO DAILY PRN #60 tablet PRN Reason: Constipation Rivaroxaban [Xarelto] 10 mg PO DAILY #30 tab No Action Potassium Chloride [Klor-Con 20] 20 meq PO DAILY Mv-Min/Folic/Vit [id number]/[id number] [Alive Women's 50 Plus Tablet] 1 each PO DAILY Ubidecarenone [Co Q-10] 100 mg PO DAILY Metoprolol Succinate [Toprol XL] 25 mg PO DAILY Turmeric Root Extract [Turmeric] 500 mg PO DAILY Ferrous Sulfate [Iron] 325 mg PO DAILY Cyanocobalamin (Vitamin B-12) [Vitamin B-12] 1,000 mcg PO DAILY Enalapril/Hydrochlorothiazide [Vaseretic 5-12.5 mg] 1 tab PO DAILY Aspirin [Adult Low Dose Aspirin EC] 81 mg PO DAILY Ibuprofen [Motrin Ib] 200 - 400 mg PO Q8H PRN PRN Reason: Pain Famotidine [Pepcid] 20 mg PO DAILY Acetaminophen [Tylenol Arthritis] 650 mg PO DIRECTED PRN PRN Reason: Pain Monthly Infusions For Ra 1 dose IV QMONTHLY Discharge Medication List Cyanocobalamin (Vitamin B-12) [Vitamin B-12] 1,000 mcg PO DAILY 04/26/21 [History] Enalapril/Hydrochlorothiazide [Vaseretic 5-12.5 mg] 1 tab PO DAILY 04/26/21 [History] Ferrous Sulfate [Iron] 325 mg PO DAILY 04/26/21 [History] Metoprolol Succinate [Toprol XL] 25 mg PO DAILY 04/26/21 [History] Mv-Min/Folic/Vit K/Lut/Poar199 [Alive Women's 50 Plus Tablet] 1 each PO DAILY 04/26/21 [History] Potassium Chloride [Klor-Con 20] 20 meq PO DAILY 04/26/21 [History] Ubidecarenone [Co Q-10] 100 mg PO DAILY 04/26/21 [History] Turmeric Root Extract [Turmeric] 500 mg PO DAILY 11/05/22 [History] Acetaminophen [Tylenol Arthritis] 650 mg PO DIRECTED PRN 03/07/23 [History] Aspirin [Adult Low Dose Aspirin EC] 81 mg PO DAILY 03/07/23 [History] Famotidine [Pepcid] 20 mg PO DAILY 03/07/23 [History] Ibuprofen [Motrin Ib] 200 - 400 mg PO Q8H PRN 03/07/23 [History] Monthly Infusions For Ra 1 dose IV QMONTHLY 03/07/23 [History] Rivaroxaban [Xarelto] 10 mg PO DAILY #30 tab 03/12/23 [Rx] Sennosides [Senokot] 2 tab PO DAILY PRN #60 tablet 03/12/23 [Rx] traMADol HCl [Ultram] 1 - 2 tab PO Q6H PRN #32 tab 03/12/23 [Rx] Follow up Appointment(s)/Referral(s): [facility], [NON-STAFF] - 1-2 Days ([facility] will call you to schedule your in home physical therapy visits. ) Arjun Horn DO [Doctor of Osteopathic Medicine] - 03/25/23 2:30 pm (With Yessenia Salinas) Activity/Diet/Wound Care/Special Instructions: Toe-touch weightbearing to the right lower extremity with a walker. Leave dressing intact. Dressing may be removed by home care nurse or by patient in 7 days. Then change dressing twice daily until follow up. May shower with initial dressing intact and after removal. If dressing become saturated, please remove. Please take Xarelto once daily for 30 days to help prevent blood clots. Recommend use of compression stockings daily until follow up to help prevent swelling and blood clots. May remove at night before sleeping. Please follow-up with [facility] in 2 weeks and call with any questions or concerns, .
[2023-03-15 12:18] LABS: Basophils # (A) 0.03 X 10*3/uL (0.00-0.10); Basophils % (A) 0.4 %; Eosinophils # (A) 0.09 X 10*3/uL (0.04-0.35); Eosinophils % (A) 1.3 %; HCT 22.2 % (37.2-50.0); HGB 6.9 d/dL (12.0-17.0); MCH 27.2 pg (27.0-32.0); MCHC 31.1 d/dL (32.0-37.0); MCV 87.4 FL (80.0-97.0); Mean Platelet Volume 10.2 FL (9.5-12.2); Monocytes # (A) 0.52 X 10*3/uL (0.20-1.00); Monocytes % (A) 7.4 %; NRBC Per 100 WBC 0 X 10*3/uL (0.00-0.01); Neutrophils # (A) 4.43 X 10*3/uL (1.80-7.70); Platelet Count 222 X 10*3/uL (140-440); RBC 2.54 X 10*6/uL (4.10-5.60); RDW 13.4 % (11.5-14.5); WBC 7.03 X 10*3/uL (4.50-10.00)
[2023-03-15 15:42] VITALS: RESP 16
[2023-03-15 17:37] VITALS: BP 125/70; PULSE 88; TEMP 97.9
--- NOTE | 2023-03-15 20:10 | P.PN ---
Progress Note - Text Progress Note Date: 03/15/23 - Chief Complaint Right hip surgery - History of Present Illness This is a very pleasant 77-year-old patient, follows Dr. Bacon. Patient is undergoing right total hip arthroplasty. Pain control. Sitting up in a recliner. Became dizzy lightheaded nausea with standing up today. Blood pressures found to be low. IV fluids given. Blood pressure medications were held. No fever no chills. Patient's son at the bedside. Tired. March 14: Up in a recliner. Did walk some. Some pain in the operative site. Eating better. No nausea vomiting. Lightheaded dizziness much better. Getting IV Ferrlecit March 15: Doing much better. No dizziness. Oral intake fair. Some pain present. Going to rehab today. Hemoglobin had come down to 6.9. Was ordered 1 unit of blood. Current medications reviewed Past medical history to include: GERD, hypertension, osteomyelitis, rheumatoid arthritis, gets monthly infusions of Dr. Casarez. Social history: Lives alone. Does use a walker. No smoking or alcohol. Physical examination: VITAL SIGNS: 97.9, 88, 16, 1 25 x 70, GENERAL: Up in a chair, comfortable EYES: [Pupils equal. Conjunctiva pale l. HEENT: External appearance of nose and ears normal, oral cavity grossly normal. NECK: JVD not raised; masses not palpable. HEART: First and second heart sounds are normal; no edema. LUNGS: Respiratory rate normal; clear to auscultation. ABDOMEN: Soft, nontender, liver spleen not palpable, no masses palpable. PSYCH: Alert and oriented x3; mood and affect normal. MUSCULOSKELETAL:No Clubbing/cyanosis;muscles-grossly intact. Dressing over the right hip incision site. OA. INVESTIGATIONS, reviewed in the clinical context: March 13: White count 7.6 hemoglobin 8.1 platelets 222 Prior labs: 03/08/2023: Hemoglobin 12.8 platelets 251 potassium 3.7 BUN 10.3 creatinine 0.9 Assessment plan: -Revision right total hip arthroplasty, by Dr. Arjun Raza for DVT prophylaxis -Acute hypotension symptomatic from blood loss: Better IV fluids. -Acute postprocedure blood loss anemia expected from surgery IV Ferrlecit 2. Transfuse 1 unit of blood. 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 Vasotec was discontinued. Thank you Dr. Horn
== END 2023-03-15 17:22 | DRG 467 ==
LOC: OR 09:20 → 4SSUR 09:21
PROVIDERS: ADMIT Orthopaedic Surgery; ATTEND Orthopaedic Surgery
PROC: 0SP90JZ Removal of Synthetic Substitute from Right Hip Joint, Open Approach (ICD-10-PCS; 2023-03-12)
PROC: 0QP604Z Removal of Internal Fixation Device from Right Upper Femur, Open Approach (ICD-10-PCS; 2023-03-12)
PROC: 3E0T3BZ Introduction of Anesthetic Agent into Peripheral Nerves and Plexi, Percutaneous Approach (ICD-10-PCS; 2023-03-12)
PROC: 0SR906A Replacement of Right Hip Joint with Oxidized Zirconium on Polyethylene Synthetic Substitute, Uncemented, Open Approach (ICD-10-PCS; principal; 2023-03-12 11:15)
PROC: 30233N1 Transfusion of Nonautologous Red Blood Cells into Peripheral Vein, Percutaneous Approach (ICD-10-PCS; 2023-03-15)
DX: T84.090A Other mechanical complication of internal right hip prosthesis, initial encounter (principal); D62 Acute posthemorrhagic anemia; I95.89 Other hypotension; M06.9 Rheumatoid arthritis, unspecified; E89.0 Postprocedural hypothyroidism; I10 Essential (primary) hypertension; K21.9 Gastro-esophageal reflux disease without esophagitis; M19.91 Primary osteoarthritis, unspecified site; R26.9 Unspecified abnormalities of gait and mobility; Y79.2 Prosthetic and other implants, materials and accessory orthopedic devices associated with adverse incidents; Z87.39 Personal history of other diseases of the musculoskeletal system and connective tissue; Z87.81 Personal history of (healed) traumatic fracture; Z91.81 History of falling; Z79.899 Other long term (current) drug therapy; Z79.82 Long term (current) use of aspirin; Z79.01 Long term (current) use of anticoagulants; Z88.5 Allergy status to narcotic agent
CPT/HCPCS: 64447; 73501; 85025; 86850; 86900; 86901; 86920; 93005; 94760